=== PATIENT | female | born 1955 | race Two or more races ===

== ENCOUNTER 2020-01-20 09:57 | Outpatient (REF) | payer MEDICARE, MEDICAID, SELFPAY ==
[2020-01-20 11:06] LABS: MANUAL DIFF FLAG NO
[2020-01-20 11:10] LABS: Basophils Percent Auto 0.3 % (0-2); Eosinophils Absolute Auto 0.1 X10*3/uL (0.0-0.4); Eosinophils Percent Auto 1.2 % (0-4); Hematocrit 37.6 % (37-47); Hemoglobin 11.5 g/dl (12.0-16.0); Imm Gran Abs Auto 0.02 X10*3/uL (0.00-0.03); Imm Gran Pct Auto 0.3 % (0.0-0.4); Lymphocytes Absolute Auto 2.6 X10*3/uL (1.2-4.9); Lymphocytes Percent Auto 35.3 % (20-40); Mean Corpuscular HGB Conc 30.6 g/dl (31.0-35.0); Mean Corpuscular Hemoglobin 27.2 pg (27.0-33.0); Mean Corpuscular Volume 88.9 fL (80-98); Mean Platelet Volume 11.3 fL (9.4-12.3); Monocytes Absolute Auto 0.6 X10*3/uL (0.1-1.2); Monocytes Percent Auto 7.6 % (2-11); Neutrophils Absolute Auto 4.1 X10*3/uL (2.0-8.3); Neutrophils Percent Auto 55.3 % (45-73); Platelet Count 308 X10*3/uL (160-400); Red Blood Count 4.23 X10*6/uL (4.20-5.50); White Blood Count 7.5 X10*3/uL (4.8-10.8)
[2020-01-20 11:24] LABS: Estimated Average Glucose 140 mg/dL; Hemoglobin A1c % 6.5 %
[2020-01-20 11:55] LABS: Alanine Aminotransferase 27 U/L (0-31); Albumin Level 3.8 g/dL (3.5-5.0); Alkaline Phosphatase 85 U/L (39-117); Aspartate Amino Transferase 24 U/L (5-31); Blood Urea Nitrogen 13 mg/dL (9-16); Calcium 8.7 mg/dL (8.4-10.2); Estimated Glomerular Filt Rate > 60; Glucose Random 120 mg/dL (60-115); Total Protein 6.9 g/dL (6.5-8.0)
[2020-01-20 12:04] LABS: Anion Gap 14 (12-20); Bilirubin Total < 0.2 mg/dL (0.0-1.0); Carbon Dioxide 30 mmol/L (22-29); Chloride 101 mmol/L (96-108); Potassium 4.3 mmol/l (3.3-5.1); Sodium 141 mmol/L (135-145)
[2020-01-20 12:05] LABS: Creatinine Urine 149.71 mg/dL; Microalbum/Creatinine Ratio Ur 137.5 ug/mg cr
[2020-01-20 12:12] LABS: Thyroid Stimulating Hormone 2.95 mIU/mL (0.32-4.0)
== END 2020-01-20 09:58 | disposition home or self-care (01) ==
LOC: HO.LAB 09:57
PROVIDERS: PCP Internal Medicine; Visit Provider Internal Medicine
DX: E11.9 Type 2 diabetes mellitus without complications (principal); E78.00 Pure hypercholesterolemia, unspecified; G47.33 Obstructive sleep apnea (adult) (pediatric); M54.5 Low back pain
CPT/HCPCS: 36415; 80053; 82043; 83036; 84443; 85025

== ENCOUNTER 2020-05-08 09:42 | Outpatient (REF) | payer MEDICARE, MEDICAID, SELFPAY ==
[2020-05-08 10:39] LABS: Estimated Average Glucose 140 mg/dL; Hemoglobin A1c % 6.5 %
[2020-05-08 10:53] LABS: Alanine Aminotransferase 30 U/L (0-31); Albumin Level 3.9 g/dL (3.5-5.0); Alkaline Phosphatase 86 U/L (39-117); Anion Gap 12 (12-20); Aspartate Amino Transferase 23 U/L (5-31); Bilirubin Total 0.4 mg/dL (0.0-1.0); Blood Urea Nitrogen 19 mg/dL (9-16); Carbon Dioxide 30 mmol/L (22-29); Chloride 101 mmol/L (96-108); Cholesterol 153 mg/dL; Estimated Glomerular Filt Rate > 60; Glucose Random 151 mg/dL (60-115); HDL Cholesterol 46 mg/dL; LDL Cholesterol Calculated 88 mg/dl; Potassium 4.3 mmol/L (3.3-5.1); Sodium 139 mmol/L (135-145); Total Protein 7.1 g/dL (6.5-8.0); Triglycerides 95 mg/dL
== END 2020-05-08 09:43 | disposition home or self-care (01) ==
LOC: HO.LAB 09:42
PROVIDERS: PCP Internal Medicine; Visit Provider Internal Medicine
DX: E11.9 Type 2 diabetes mellitus without complications (principal); F32.89 Other specified depressive episodes; I10 Essential (primary) hypertension; R80.0 Isolated proteinuria
CPT/HCPCS: 36415; 80053; 80061; 83036

== ENCOUNTER 2020-06-10 10:43 | Outpatient (REF) | payer MEDICARE, MEDICAID, SELFPAY ==
--- NOTE | ~2020-06-10 | XR_ITS ---
EXAMINATION: XR CERVICAL SPINE CLINICAL INFORMATION: Radiculopathy, spondylosis COMPARISON: None TECHNIQUE: Cervical spine is imaged in 5 views: AP, odontoid, lateral, and bilateral oblique. FINDINGS: The cervical vertebral bodies are normal in height. There is no cervical vertebral compression, spondylolisthesis, disc narrowing, destructive process, or prevertebral soft tissue swelling. The odontoid appears intact. There is some minor partially bridging osteophytes anterior vertebral bodies C3-C7. Oblique view show no definite osseous narrowing of the neural foramina. There is calcification of the thyroid cartilage and mineralization left stylohyoid ligament, 4.8 cm in length. XR/XR cervical spine 5V IMPRESSION: 1. Minor anterior vertebral spurring mid and lower cervical spine. 2. No cervical vertebral compression, spondylolisthesis, disc narrowing. 3. Mineralization left stylohyoid ligament.
== END 2020-06-10 10:44 | disposition home or self-care (01) ==
LOC: HO.XRAY 10:43
PROVIDERS: PCP Internal Medicine; Visit Provider Nurse Practitioner Women's Health
DX: M54.12 Radiculopathy, cervical region (principal); M47.892 Other spondylosis, cervical region
CPT/HCPCS: 72050

== ENCOUNTER 2020-08-20 12:29 | Outpatient (REF) | payer MEDICARE, MEDICAID, SELFPAY ==
[2020-08-20 13:10] LABS: MANUAL DIFF FLAG NO
[2020-08-20 13:15] LABS: Basophils Percent Auto 0.3 % (0-2); Eosinophils Absolute Auto 0.1 X10*3/uL (0.0-0.4); Eosinophils Percent Auto 1.1 % (0-4); Hemoglobin 11.2 g/dl (12.0-16.0); Imm Gran Abs Auto 0.02 X10*3/uL (0.00-0.03); Imm Gran Pct Auto 0.3 % (0.0-0.4); Lymphocytes Absolute Auto 2.4 X10*3/uL (1.2-4.9); Mean Corpuscular HGB Conc 30.3 g/dl (31.0-35.0); Mean Corpuscular Hemoglobin 26.2 pg (27.0-33.0); Mean Corpuscular Volume 86.4 fL (80-98); Monocytes Absolute Auto 0.6 X10*3/uL (0.1-1.2); Monocytes Percent Auto 7.4 % (2-11); Neutrophils Absolute Auto 4.4 X10*3/uL (2.0-8.3); Neutrophils Percent Auto 58.9 % (45-73); Platelet Count 331 X10*3/uL (160-400); Red Blood Count 4.28 X10*6/uL (4.20-5.50); Red Cell Distribution Width 15.3 % (11.0-16.0); White Blood Count 7.5 X10*3/uL (4.8-10.8)
[2020-08-20 13:28] LABS: Estimated Average Glucose 146 mg/dL; Hemoglobin A1c % 6.7 %
[2020-08-20 13:33] LABS: Alanine Aminotransferase 35 U/L (0-31); Alkaline Phosphatase 87 U/L (39-117); Anion Gap 12 (12-20); Aspartate Amino Transferase 35 U/L (5-31); Bilirubin Total 0.6 mg/dL (0.0-1.0); Blood Urea Nitrogen 15 mg/dL (9-16); Calcium 9.2 mg/dL (8.4-10.2); Carbon Dioxide 30 mmol/L (22-29); Chloride 101 mmol/L (96-108); Cholesterol 164 mg/dL; Estimated Glomerular Filt Rate > 60; Glucose Random 130 mg/dL (60-115); HDL Cholesterol 48 mg/dL; LDL Cholesterol Calculated 105 mg/dl; Potassium 4.4 mmol/L (3.3-5.1); Sodium 139 mmol/L (135-145); Total Protein 6.6 g/dL (6.5-8.0); Triglycerides 58 mg/dL
== END 2020-08-20 12:30 | disposition home or self-care (01) ==
LOC: HO.LAB 12:29
PROVIDERS: PCP Internal Medicine; Visit Provider Internal Medicine
DX: E11.9 Type 2 diabetes mellitus without complications (principal); E78.00 Pure hypercholesterolemia, unspecified; F33.41 Major depressive disorder, recurrent, in partial remission; I10 Essential (primary) hypertension; R80.0 Isolated proteinuria
CPT/HCPCS: 36415; 80053; 80061; 83036; 85025

== ENCOUNTER 2020-12-04 08:39 | Outpatient (REF) | payer MEDICARE, MEDICAID, SELFPAY ==
[2020-12-04 09:08] LABS: MANUAL DIFF FLAG NO
[2020-12-04 09:19] LABS: Basophils Percent Auto 0.3 % (0-2); Eosinophils Absolute Auto 0.1 X10*3/uL (0.0-0.4); Eosinophils Percent Auto 1.3 % (0-4); Hematocrit 36.6 % (37-47); Hemoglobin 10.9 g/dl (12.0-16.0); Imm Gran Abs Auto 0.01 X10*3/uL (0.00-0.03); Imm Gran Pct Auto 0.1 % (0.0-0.4); Lymphocytes Absolute Auto 2.9 X10*3/uL (1.2-4.9); Lymphocytes Percent Auto 40.9 % (20-40); Mean Corpuscular HGB Conc 29.8 g/dl (31.0-35.0); Mean Corpuscular Hemoglobin 25.8 pg (27.0-33.0); Mean Corpuscular Volume 86.5 fL (80-98); Mean Platelet Volume 11.3 fL (9.4-12.3); Monocytes Absolute Auto 0.6 X10*3/uL (0.1-1.2); Monocytes Percent Auto 7.9 % (2-11); Neutrophils Absolute Auto 3.5 X10*3/uL (2.0-8.3); Neutrophils Percent Auto 49.5 % (45-73); Platelet Count 293 X10*3/uL (160-400); Red Blood Count 4.23 X10*6/uL (4.20-5.50); Red Cell Distribution Width 15.9 % (11.0-16.0); White Blood Count 7.1 X10*3/uL (4.8-10.8)
[2020-12-04 09:53] LABS: Alanine Aminotransferase 27 U/L (0-31); Albumin Level 3.9 g/dL (3.5-5.0); Alkaline Phosphatase 85 U/L (39-117); Anion Gap 11 (12-20); Aspartate Amino Transferase 23 U/L (5-31); Bilirubin Total 0.3 mg/dL (0.0-1.0); Blood Urea Nitrogen 15 mg/dL (9-16); Calcium 9.2 mg/dL (8.4-10.2); Carbon Dioxide 31 mmol/L (22-29); Chloride 102 mmol/L (96-108); Cholesterol 149 mg/dL; Estimated Glomerular Filt Rate > 60; Glucose Random 132 mg/dL (60-115); HDL Cholesterol 42 mg/dL; LDL Cholesterol Calculated 85 mg/dl; Potassium 4.2 mmol/L (3.3-5.1); Sodium 140 mmol/L (135-145); Triglycerides 113 mg/dL
[2020-12-04 10:04] LABS: Estimated Average Glucose 134 mg/dL; Hemoglobin A1C 128.6241 umol/L; Hemoglobin A1c % 6.3 %
[2020-12-04 10:05] LABS: Vitamin B12 839 pg/mL (200-900)
[2020-12-04 10:15] LABS: Ferritin 13 ng/mL (10-250)
== END 2020-12-04 08:40 | disposition home or self-care (01) ==
LOC: HO.LAB 08:39
PROVIDERS: PCP Internal Medicine; Visit Provider Internal Medicine
DX: D50.8 Other iron deficiency anemias (principal); E11.9 Type 2 diabetes mellitus without complications; E78.00 Pure hypercholesterolemia, unspecified; H81.11 Benign paroxysmal vertigo, right ear; I10 Essential (primary) hypertension; R74.01 Elevation of levels of liver transaminase levels
CPT/HCPCS: 36415; 80053; 80061; 82607; 82728; 83036; 85025

== ENCOUNTER 2021-02-03 09:50 | Outpatient (REF) | payer MEDICARE, MEDICAID, SELFPAY ==
--- NOTE | ~2021-02-03 | XR_ITS ---
EXAMINATION: RIGHT ANKLE AND FOOT X-RAY CLINICAL INFORMATION: Pain COMPARISON: None TECHNIQUE: 3 views of the right ankle and 3 views of the right foot FINDINGS: Right foot: Bone alignment is normal. No fracture or dislocation is seen. There is mild osteoarthritis at the first MTP joint with small osteophytes. There are small osteophytes in the midfoot at the navicular cuneiform and cuneiform metatarsal joints. There are calcaneal spurs. Soft tissues are otherwise unremarkable. Right ankle: Bone alignment is normal. No fracture or dislocation is seen. The ankle mortise is normal. Soft tissues are normal. XR/XR ankle RT 2V IMPRESSION: Right foot: Mild degenerative changes and calcaneal spurs. Right ankle: Unremarkable exam.
--- NOTE | ~2021-02-03 | XR_ITS ---
EXAMINATION: RIGHT ANKLE AND FOOT X-RAY CLINICAL INFORMATION: Pain COMPARISON: None TECHNIQUE: 3 views of the right ankle and 3 views of the right foot FINDINGS: Right foot: Bone alignment is normal. No fracture or dislocation is seen. There is mild osteoarthritis at the first MTP joint with small osteophytes. There are small osteophytes in the midfoot at the navicular cuneiform and cuneiform metatarsal joints. There are calcaneal spurs. Soft tissues are otherwise unremarkable. Right ankle: Bone alignment is normal. No fracture or dislocation is seen. The ankle mortise is normal. Soft tissues are normal. XR/XR foot RT 2V IMPRESSION: Right foot: Mild degenerative changes and calcaneal spurs. Right ankle: Unremarkable exam.
== END 2021-02-03 09:51 | disposition home or self-care (01) ==
LOC: HO.XRAY 09:50
PROVIDERS: PCP Internal Medicine; Visit Provider Nurse Practitioner Women's Health
DX: M25.571 Pain in right ankle and joints of right foot (principal)
CPT/HCPCS: 73600; 73620

== ENCOUNTER 2021-07-07 08:26 | Outpatient (REF) | payer MEDICARE, MEDICAID, SELFPAY ==
[2021-07-07 08:49] LABS: MANUAL DIFF FLAG NO
[2021-07-07 09:12] LABS: Basophils Percent Auto 0.5 % (0-2); Eosinophils Absolute Auto 0.1 X10*3/uL (0.0-0.4); Eosinophils Percent Auto 1.7 % (0-4); Hematocrit 31.5 % (37.0-47.0); Hemoglobin 9.1 g/dl (12.0-16.0); Imm Gran Abs Auto 0.02 X10*3/uL (0.00-0.03); Imm Gran Pct Auto 0.2 % (0.0-0.4); Lymphocytes Absolute Auto 2.8 X10*3/uL (1.2-4.9); Lymphocytes Percent Auto 33.9 % (20-40); Mean Corpuscular HGB Conc 28.9 g/dl (31.0-35.0); Mean Corpuscular Hemoglobin 24.9 pg (27.0-33.0); Mean Corpuscular Volume 86.3 fL (80.0-98.0); Mean Platelet Volume 10.8 fL (9.4-12.3); Monocytes Absolute Auto 0.6 X10*3/uL (0.1-1.2); Monocytes Percent Auto 7.3 % (2-11); Neutrophils Absolute Auto 4.6 x10*3/uL (2.0-8.3); Neutrophils Percent Auto 56.4 % (45-73); Platelet Count 294 X10*3/uL (160-400); Red Blood Count 3.65 X10*6/uL (4.20-5.50); Red Cell Distribution Width 16.3 % (11.0-16.0); White Blood Count 8.1 X10*3/uL (4.8-10.8)
[2021-07-07 09:40] LABS: Alanine Aminotransferase 27 U/L (0-31); Albumin Level 3.7 g/dL (3.5-5.0); Alkaline Phosphatase 91 U/L (39-117); Anion Gap 10 (12-20); Aspartate Amino Transferase 17 U/L (5-31); Bilirubin Total 0.4 mg/dL (0.0-1.0); Blood Urea Nitrogen 17 mg/dL (9-16); Calcium 9.2 mg/dL (8.4-10.2); Carbon Dioxide 30 mmol/L (22-29); Chloride 106 mmol/L (96-108); Estimated Glomerular Filt Rate > 60; Glucose Random 132 mg/dL (60-115); Potassium 4.5 mmol/L (3.3-5.1); Sodium 141 mmol/L (135-145); Total Protein 6.9 g/dL (6.5-8.0)
[2021-07-07 10:02] LABS: Ferritin 13 ng/mL (10-250)
[2021-07-07 10:51] LABS: Estimated Average Glucose 137 mg/dL; Hemoglobin A1c % 6.4 %
[2021-07-07 11:01] LABS: Creatinine Urine 103.89 mg/dL
[2021-07-07 11:25] LABS: Microalbum/Creatinine Ratio Ur 903.8 ug/mg cr
== END 2021-07-07 08:27 | disposition home or self-care (01) ==
LOC: HO.LAB 08:26
PROVIDERS: PCP Internal Medicine; Visit Provider Internal Medicine
DX: D50.8 Other iron deficiency anemias (principal); E11.40 Type 2 diabetes mellitus with diabetic neuropathy, unspecified; E78.00 Pure hypercholesterolemia, unspecified
CPT/HCPCS: 36415; 80053; 82043; 82728; 83036; 85025

== ENCOUNTER 2021-07-29 11:58 | Outpatient (REF) | payer MEDICARE, MEDICAID, SELFPAY ==
--- NOTE | ~2021-07-29 | MM_ITS ---
EXAMINATION: MM SCREENING DIGITAL BREAST TOMOSYNTHESIS, BILATERAL CLINICAL INFORMATION: Screening. Asymptomatic. The lifetime risk of breast cancer based on the Tyrer-Cuzick Model is 4.2%. COMPARISON: Mammography: None TECHNIQUE: Digital breast tomosynthesis is performed in both the craniocaudal and mediolateral oblique views along with computer-aided detection (CAD). Synthesized 2D images are generated from the tomosynthesis. FINDINGS: There are scattered areas of fibroglandular density (ACR BI-RADS breast composition Category b). There are no significant masses, abnormal calcifications, or other abnormalities. MM/MM tomosynthesis screening BI IMPRESSION: There are no significant changes from prior study. ASSESSMENT: BI-RADS 1: Negative RECOMMENDATION: Routine annual mammography screening. This patient's information was entered into a reminder system with a target due date for their next mammogram.
== END 2021-07-29 11:59 | disposition home or self-care (01) ==
LOC: HO.MAMMO 11:58
PROVIDERS: Visit Provider Internal Medicine
DX: Z12.31 Encounter for screening mammogram for malignant neoplasm of breast (principal)
CPT/HCPCS: 77063; 77067

== ENCOUNTER 2021-10-06 10:38 | Outpatient (REF) | payer MEDICARE, MEDICAID, SELFPAY ==
[2021-10-06 14:15] LABS: Estimated Average Glucose 131 mg/dL; Hemoglobin A1c % 6.2 %
[2021-10-06 14:31] LABS: Alanine Aminotransferase 33 U/L (0-31); Albumin Level 4.1 g/dL (3.5-5.0); Alkaline Phosphatase 80 U/L (39-117); Aspartate Amino Transferase 32 U/L (5-31); Bilirubin Total 0.3 mg/dL (0.0-1.0); Blood Urea Nitrogen 18 mg/dL (9-16); Calcium 8.8 mg/dL (8.4-10.2); Estimated Glomerular Filt Rate > 60; Glucose Random 113 mg/dL (60-115); Total Protein 7.3 g/dL (6.5-8.0)
[2021-10-06 14:48] LABS: Anion Gap 13 (12-20); Carbon Dioxide 29 mmol/L (22-29); Chloride 101 mmol/L (96-108); Sodium 139 mmol/L (135-145)
== END 2021-10-06 10:39 | disposition home or self-care (01) ==
LOC: HO.10HDL 10:38
PROVIDERS: Visit Provider Internal Medicine
DX: E11.9 Type 2 diabetes mellitus without complications (principal); I10 Essential (primary) hypertension; N23 Unspecified renal colic; F32.2 Major depressive disorder, single episode, severe without psychotic features
CPT/HCPCS: 36415; 80053; 83036

== ENCOUNTER 2021-12-04 20:50 | Emergency (ER) | payer MEDICARE, MEDICAID, SELFPAY ==
[2021-12-04 21:30] VITALS: BP 157/75; PULSE 73; RESP 20; TEMP 36.6; O2SAT 95; BMI 46.7
[2021-12-04 21:37] LABS: MANUAL DIFF FLAG NO
[2021-12-04 21:39] LABS: Basophils Percent Auto 0.3 % (0-2); Eosinophils Absolute Auto 0.1 X10*3/uL (0.0-0.4); Eosinophils Percent Auto 0.7 % (0-4); Hematocrit 41.4 % (37.0-47.0); Hemoglobin 13.1 g/dl (12.0-16.0); Imm Gran Abs Auto 0.02 X10*3/uL (0.00-0.03); Imm Gran Pct Auto 0.2 % (0.0-0.4); Lymphocytes Absolute Auto 1.8 X10*3/uL (1.2-4.9); Lymphocytes Percent Auto 20.4 % (20-40); Mean Corpuscular HGB Conc 31.6 g/dl (31.0-35.0); Mean Corpuscular Hemoglobin 27.8 pg (27.0-33.0); Mean Corpuscular Volume 87.9 fL (80.0-98.0); Mean Platelet Volume 10.6 fL (9.4-12.3); Monocytes Absolute Auto 0.5 X10*3/uL (0.1-1.2); Monocytes Percent Auto 5.6 % (2-11); Neutrophils Absolute Auto 6.5 x10*3/uL (2.0-8.3); Neutrophils Percent Auto 72.8 % (45-73); Platelet Count 260 X10*3/uL (160-400); Red Blood Count 4.71 X10*6/uL (4.20-5.50); Red Cell Distribution Width 14.5 % (11.0-16.0); White Blood Count 8.9 X10*3/uL (4.8-10.8)
[2021-12-04 22:02] LABS: Alanine Aminotransferase 31 U/L (0-31); Alkaline Phosphatase 81 U/L (39-117); Anion Gap 14 (12-20); Aspartate Amino Transferase 28 U/L (5-31); Bilirubin Direct 0.3 mg/dL (0.0-0.5); Bilirubin Total 0.6 mg/dL (0.0-1.0); Blood Urea Nitrogen 12 mg/dL (9-16); Calcium 9.3 mg/dL (8.4-10.2); Carbon Dioxide 29 mmol/L (22-29); Chloride 100 mmol/L (96-108); Estimated Glomerular Filt Rate > 60; Glucose Random 138 mg/dL (60-115); Lipase 8 U/L (8-78); Potassium 4.2 mmol/L (3.3-5.1); Sodium 139 mmol/L (135-145); Total Protein 7.5 g/dL (6.5-8.0)
--- NOTE | 2021-12-05 00:42 | ED_ITS ---
HPI - Nausea/Vomiting/Diarrhea General Chief complaint: Nausea/Vomiting/Diarrhea Stated complaint: diabetic, cant move/ eat, vomiting, mtlpe issues Time Seen by Provider: 12/05/21 00:11 Source: patient and family Mode of arrival: ambulatory Limitations: language barrier ( patient's 1st language is Cambodian, she does speak some Senegalese, son speaks Senegalese, [place]ian iPad park interpreter was used) History of Present Illness HPI Narrative: 66-year-old female who presents emergency department for evaluation of vertigo, nausea, vomiting, abdominal pain and weakness. The patient states that she has been having difficulty with positional vertigo for approximately 3 weeks. She states that her doctor did put her on Antivert which is given her some relief. The patient states that she was in [place] for 15 days and has been back for approximately 4 days. She states since returning from [place] her vertigo i s gotten worse. She states that if she lies in bed and does not move she feels okay but if she turns her head she gets dizzy as if the room is spinning. She states that she has associated nausea and has vomited at least 5 times yesterday. She also developed abdominal pain. She points to her epigastric area when asked to localize the pain. She describes it as an intermittent burning sensation. She states she also had several episodes of loose diarrheal stool yesterday. She denied fever, chills, rhinorrhea, sore throat, cough, chest pain. She states she occasionally feels short of breath. She denied frequency but she states that yesterday she did have some dysuria but this resolved. She denies headache. She states she has diffuse weakness. Related Data Previous Rx's Medication Instructions Recorded meclizine 25 mg tablet (Dramamine 25 mg PO TID PRN dizziness #20 tabs 12/05/21 Less Drowsy) ondansetron 4 mg disintegrating 4 mg PO Q6-8H PRN nausea and 12/05/21 tablet vomiting #14 tabs Allergies Allergy/AdvReac Type Severity Reaction Status Date / Time gabapentin Allergy Unknown leg edema, Verified 12/04/21 21:34 wt gain pregabalin Allergy Unknown wt gain, Verified 12/04/21 21:34 depression, anxiety No Known Allergies Allergy Verified 11/11/21 13:15 [No Known Allergies*] Review of Systems Review of Systems: Yes all other systems are reviewed and are negative PMFSH Past Medical History [facility] Narrative: Past medical history: Diabetes mellitus, hypertension, obstructive sleep apnea, depression, anxiety, fibromyalgia, chronic back pain , kidney stones (Left staghorn calculus). The past surgical history: Cholecystectomy. Social history: She denies tobacco use but she is a former smoker and quit approximately 11 years prior. She denies alcohol use. She denies drug use. Social History Social History Advance Directives: No Advance Directives Information Provided: No Physical Exam Vital Signs: Vital Signs: Last Vital Signs Temp 98.0 F 12/05/21 00:55 Pulse 68 12/05/21 00:55 Resp 16 12/05/21 00:55 BP 138/58 L 12/05/21 00:55 Pulse Ox 95 12/05/21 00:55 O2 Del Method 12/05/21 00:55 BMI result Body Mass Index 46.7 Const: Other: awake, alert, female patient, very pleasant and cooperative, does not appear to be in distress, answers all questions appropriately, she has an elevated BMI of 46.8 Orientation/consciousness: oriented to person and oriented to place HEENT: Head: Yes normal to inspection, Yes normocephalic and Yes atraumatic Ears: external ears normal General nose exam: Normal external nose present Face and sinus: Yes normal facial exam Mouth: Normal oral and palatal mucosa present Throat: Yes posterior oropharynx normal Eyes: General: appearance normal, both eyes and all related structures Pupils: Equal, round and reactive pupils present Neck: Neck: Yes normal visual inspection, Yes no lymphadenopathy, Yes trachea midline and Yes supple Chest: Chest palpation & inspection: normal inspection of the chest and normal palpation of entire chest wall Resp: Effort & Inspection: normal respiratory effort and able to speak in complete sentences Auscultation: clear to auscultation bilaterally Cardio: Rate: regular rate Rhythm: regular rhythm Heart sounds: S1 normal heart sound present, S2 normal heart sound present and no murmurs GI: Inspection: Yes normal to inspection Palpation (GI): Soft to palpation, Tenderness to palpation present (GI) in the epigastrum ( moderate) and no guarding Auscultation: normal bowel sounds : General: Yes no CVA tenderness Back/Spine/Pelvis: Back: no CVA tenderness Skin: General skin exam: no rashes or lesions noted Neuro: General: oriented to person and oriented to place Cranial nerves: Yes CN's II-XII intact bilaterally and Yes Equal, round and reactive pupils present Cognition (Neuro): normal cognition Motor exam (neuro): 5/5 motor strength present throughout Coordination: [id number] test normal and [id number] test normal Extrem: General: Yes normal to inspection Psych: Appearance: grossly normal Speech and movement: Normal speech and movement present Affect: normal affect Attitude: cooperative Thought process: Normal thought process present Thought content: Normal thought content present Course Course Course Narrative: 66-year-old female who presents emergency department for evaluation of positional vertigo, nausea, vomiting, weakness, epigastric abdominal pain. Patient states she was diagnosed with vertigo and has been having symptoms for the past 3 weeks. She states for the past 24 hours she has had significant room spinning dizziness whenever she moves her head with associated nausea and vomiting. She currently is complaining of pain in her epigastric area as well. Patient has been taking Antivert with some relief but in the last 24 hours the medication is not helped her symptoms. Patient's vital signs were unremarkable. The patient's abdominal exam did reveal epigastric tenderness, her neurologic exam was non focal. Did order laboratory evaluation includes CBC, CMP, lipase, urinalysis. . Patient was ordered to get normal saline x1 L IV, Zofran 4 mg IV and Toradol 30 mg IV. 0052 : Laboratory evaluation: CBC normal. CMP was normal except for an elevated glucose of 138. Lipase was normal. 0315: Patient is feeling better after the above treatment. The patient's presentation is consistent with positional vertigo causing nausea and vomiting. The patient was given another prescription for meclizine. She was also given prescription for Zofran. She was given printed and verbal instructions and discharged home MDM - Nausea/Vomiting/Diarrhea Lab Data Result diagrams: 12/04/21 21:33 12/04/21 21:33 Labs: Lab Results 12/04/21 12/04/21 12/05/21 Range/Units 21:33 21:33 00:47 WBC 8.9 (4.8-10.8) X10*3/uL RBC 4.71 D (4.20-5.50) X10*6/uL Hgb 13.1 D (12.0-16.0) g/dl Hct 41.4 D (37.0-47.0) % MCV 87.9 (80.0-98.0) fL MCH 27.8 (27.0-33.0) pg MCHC 31.6 (31.0-35.0) g/dl RDW 14.5 (11.0-16.0) % Plt Count 260 (160-400) X10*3/uL MPV 10.6 (9.4-12.3) fL Immature Gran % (Auto) 0.2 (0.0-0.4) % Neut % (Auto) 72.8 (45-73) % Lymph % (Auto) 20.4 (20-40) % [place] % (Auto) 5.6 (2-11) % Eos % (Auto) 0.7 (0-4) % Baso % (Auto) 0.3 (0-2) % Lymph # (Auto) 1.8 (1.2-4.9) X10*3/uL [place] # (Auto) 0.5 (0.1-1.2) X10*3/uL Eos # (Auto) 0.1 (0.0-0.4) X10*3/uL Baso # (Auto) 0.0 (0.0-0.2) X10*3/uL Abs Immat Gran (auto) 0.02 (0.00-0.03) X10*3/uL Absolute Neuts (auto) 6.5 (2.0-8.3) x10*3/uL Absolute Nucleated RBC 0.000 (0.0-0.012) X10*3/uL Nucleated RBC % (auto) 0.0 (0.0-0.2) /100WBC Sodium 139 (135-145) mmol/L Potassium 4.2 (3.3-5.1) mmol/L Chloride 100 (96-108) mmol/L Carbon Dioxide 29 (22-29) mmol/L Anion Gap 14 (12-20) BUN 12 (9-16) mg/dL Creatinine 0.76 (0.5-1.4) mg/dL Estim Creat Clear Calc 100.0 Estimated GFR > 60 Random Glucose 138 H (60-115) mg/dL Calcium 9.3 (8.4-10.2) mg/dL Total Bilirubin 0.6 (0.0-1.0) mg/dL Direct Bilirubin 0.3 (0.0-0.5) mg/dL AST 28 (5-31) U/L ALT 31 (0-31) U/L Alkaline Phosphatase 81 (39-117) U/L Total Protein 7.5 (6.5-8.0) g/dL Albumin 4.0 (3.5-5.0) g/dL Lipase 8 (8-78) U/L Urine Color Yellow Urine Appearance Clear Urine pH 7.5 (5.0-9.0) Ur Specific [place] 1.015 (1.005-1.025) Urine Protein Negative (Neg-Trace) mg/dL Urine Glucose (UA) Negative (Negative) mg/dL Urine Ketones Negative (Negative) mg/dL Urine Blood Negative (Negative) Urine Nitrite Negative (Negative) Ur Leukocyte Esterase Small (1+) H (Negative) Urine RBC 0-2 (0-2) /HPF Urine WBC 6-10 H (0-5) /HPF Ur Squamous Epith Cells 3-5 (0-2) /HPF Urine Bacteria 1+ (None Seen) Hyaline Casts 0-2 (0-2) /LPF Discharge Plan Discharge Clinical Impression: Acute dehydration Benign paroxysmal positional vertigo Qualifiers: Laterality: unspecified laterality Qualified Code(s): H81.10 - Benign paroxysmal vertigo, unspecified ear Vomiting Qualifiers: Nausea presence: with nausea Patient Disposition: Home, Self-Care Instructions: Benign Paroxysmal Positional Vertigo (ED) Additional Instructions: Your blood work was unremarkable. Your symptoms are consistent with positional vertigo. Take meclizine 25 mg pills, 1 pill 3 times a day for the next 3 days for dizziness then as needed for dizziness. This medication will make you sleepy. Do not drive or work while taking this medication. Take Zofran ODT 4 mg pills, 1 pill dissolved in your mouth every 8 hours as need ed for nausea and vomiting. Follow-up with your doctor in 2 days. Please return to the emergency department if your symptoms get worse or if you develop any symptoms that are concerning to you. Prescriptions: New ondansetron 4 mg tablet,disintegrating 4 mg PO Q6-8H PRN (Reason: nausea and vomiting) Qty: 14 0RF meclizine [Dramamine Less Drowsy] 25 mg tablet 25 mg PO TID PRN (Reason: dizziness) Qty: 20 0RF
[2021-12-05] MEDS: 0.9 % Sodium Chloride 1,000 ML 999 ML IV (00:51)
[2021-12-05] MEDS: ondansetron HCL 4 MG/2 ML VIAL IVPUSH (00:51)
[2021-12-05] MEDS: Ketorolac Tromethamine 15 MG/ML VIAL 30 MG IVPUSH (00:51)
[2021-12-05 00:53] LABS: Appearance Urine Clear; Color Urine Yellow; Glucose Urine UA Negative (Negative); Leukocyte Esterase Urine Small (1+) (Negative); Nitrite Urine Negative (Negative); PH 7.5 (5.0-9.0); Specific Gravity - Urine 1.015 (1.005-1.025); Urine Blood Negative (Negative); Urine Ketones Negative (Negative); Urine Protein Negative (Neg-Trace)
[2021-12-05 00:55] VITALS: BP 138/58; PULSE 68; RESP 16; TEMP 36.7; O2SAT 95
[2021-12-05 00:55] LABS: Bacteria Urine 1+ (None Seen); Hyaline Casts Urine 0-2 /LPF (0-2); RBC Urine 0-2 /HPF (0-2); UACC Culture Trigger YES
[2021-12-05 03:21] VITALS: BP 126/58; PULSE 64; RESP 16; TEMP 36.6; O2SAT 97
[2021-12-06 06:54] LABS: Glucose, Whole Blood 129 mg/dL (60-115)
== END 2021-12-05 03:50 | disposition home or self-care (01) ==
PROVIDERS: Student in an Organized Health Care Education/Training Program; Emergency Provider Emergency Medicine Emergency Medical Services
DX: E86.0 Dehydration (principal); H81.10 Benign paroxysmal vertigo, unspecified ear; R11.2 Nausea with vomiting, unspecified; E66.9 Obesity, unspecified; Z68.42 Body mass index [BMI] 45.0-49.9, adult; Z79.899 Other long term (current) drug therapy
CPT/HCPCS: 36415; 80048; 80076; 81001; 82947; 83690; 85025; 87086; 96374; 96375; 99284; J1885; J2405

== ENCOUNTER 2022-04-18 10:33 | Outpatient (REF) | payer MEDICARE, MEDICAID, SELFPAY ==
[2022-04-18 10:46] LABS: MANUAL DIFF FLAG NO
[2022-04-18 11:00] LABS: Basophils Percent Auto 0.2 % (0-2); Eosinophils Absolute Auto 0.1 X10*3/uL (0.0-0.4); Hematocrit 42.7 % (37.0-47.0); Hemoglobin 13.4 g/dl (12.0-16.0); Imm Gran Abs Auto 0.02 X10*3/uL (0.00-0.03); Imm Gran Pct Auto 0.2 % (0.0-0.4); Lymphocytes Percent Auto 36.8 % (20-40); Mean Corpuscular HGB Conc 31.4 g/dl (31.0-35.0); Mean Corpuscular Hemoglobin 28.9 pg (27.0-33.0); Mean Corpuscular Volume 92.2 fL (80.0-98.0); Mean Platelet Volume 10.8 fL (9.4-12.3); Monocytes Absolute Auto 0.6 X10*3/uL (0.1-1.2); Monocytes Percent Auto 7.1 % (2-11); Neutrophils Absolute Auto 4.5 x10*3/uL (2.0-8.3); Neutrophils Percent Auto 54.7 % (45-73); Platelet Count 278 X10*3/uL (160-400); Red Blood Count 4.63 X10*6/uL (4.20-5.50); Red Cell Distribution Width 13.7 % (11.0-16.0); White Blood Count 8.2 X10*3/uL (4.8-10.8)
[2022-04-18 11:07] LABS: Estimated Average Glucose 140 mg/dL; Hemoglobin A1c % 6.5 %
[2022-04-18 11:53] LABS: Alanine Aminotransferase 52 U/L (0-31); Albumin Level 3.9 g/dL (3.5-5.0); Alkaline Phosphatase 95 U/L (39-117); Anion Gap 13 (12-20); Aspartate Amino Transferase 40 U/L (5-31); Bilirubin Total 0.4 mg/dL (0.0-1.0); Blood Urea Nitrogen 18 mg/dL (9-16); Calcium 9.1 mg/dL (8.4-10.2); Carbon Dioxide 31 mmol/L (22-29); Chloride 101 mmol/L (96-108); Cholesterol 168 mg/dL; Estimated Glomerular Filt Rate > 60; Glucose Random 132 mg/dL (60-115); HDL Cholesterol 44 mg/dL; LDL Cholesterol Calculated 104 mg/dl; Potassium 4.1 mmol/L (3.3-5.1); Sodium 141 mmol/L (135-145); Triglycerides 104 mg/dL
[2022-04-18 12:47] LABS: Creatinine Urine 168.81 mg/dL; Microalbum/Creatinine Ratio Ur 100.1 ug/mg cr
== END 2022-04-18 10:34 | disposition home or self-care (01) ==
LOC: HO.LAB 10:33
PROVIDERS: PCP Internal Medicine; Visit Provider Internal Medicine
DX: E11.9 Type 2 diabetes mellitus without complications (principal); I10 Essential (primary) hypertension; N20.0 Calculus of kidney; S05.92XS Unspecified injury of left eye and orbit, sequela
CPT/HCPCS: 36415; 80053; 80061; 82043; 83036; 85025

== ENCOUNTER → 2022-05-13 09:06 | Outpatient (BNVA) | payer MEDICARE, MEDICAID, SELFPAY | PROVIDERS: PCP Internal Medicine; Visit Provider Urology | DX: N20.0 Calculus of kidney (principal); R31.0 Gross hematuria | CPT/HCPCS: 99202 ==

== ENCOUNTER 2022-05-26 15:27 | Outpatient (REF) | payer MEDICARE, MEDICAID, SELFPAY ==
--- NOTE | ~2022-05-26 | CT_ITS ---
EXAMINATION: CT ABDOMEN AND PELVIS WITHOUT CONTRAST CLINICAL INFORMATION: Kidney stone COMPARISON: Previous CT of the abdomen and pelvis October 2021 TECHNIQUE: Multidetector volumetric imaging was performed from the superior aspect of the liver through the pubic symphysis. Sagittal and coronal reformatted images were obtained on the technologist's workstation. This CT examination was performed using dose optimization techniques as appropriate, variously including the following: *Automated exposure control *Adjustment of mA and/or kV according to patient size (this includes techniques or standardized protocols for targeted exams where dose is matched to indication/reason for exam; i.e. extremities or head) *Use of iterative reconstruction technique DLP: 1020 mGy-cm FINDINGS: LUNG BASES: The visualized lung bases are unremarkable. LIVER, GALLBLADDER, AND BILIARY TREE: The liver is enlarged. The contour of the liver is slightly irregular questionable for mild cirrhotic change. No focal liver lesion or biliary duct dilatation.. No focal hepatic lesion or biliary ductal dilatation is present. The gallbladder has been removed. PANCREAS: Unremarkable. SPLEEN: Unremarkable. ADRENAL GLANDS: Unremarkable. KIDNEYS AND URETERS: 7 x 17 mm stone in the left renal pelvis. Hounsfield units measure 260. This appears decreased in size and density compared to October 2021 exam. Measurement from the mid axillary line not available due to patient body habitus. This is at least 14 cm from the mid axillary line. Mild left hydronephrosis. No left ureteral dilatation or ureteral stone. There is a 1 cm low-attenuation lesion in the medial lower pole of the right kidney. Compared with prior exam, this probably represents a cyst. BLADDER: Not optimally distended. GASTROINTESTINAL TRACT: The small and large bowel are unremarkable. The appendix is unremarkable. ABDOMINAL WALL: Small umbilical hernia containing fat. LYMPH NODES: Normal. VASCULAR: Unremarkable. PELVIC VISCERA: Unremarkable. OSSEOUS STRUCTURES: Degenerative changes of the spine and hip joints. CT/CT abdomen pelvis wo IV con IMPRESSION: 7 x 17 mm left renal pelvis stone. Mild left hydronephrosis. Fleischner guidelines were followed.
== END 2022-05-26 15:28 | disposition home or self-care (01) ==
LOC: HO.CT 15:27
PROVIDERS: PCP Internal Medicine; Visit Provider Urology
DX: N20.0 Calculus of kidney (principal)
CPT/HCPCS: 74176

== ENCOUNTER → 2022-05-30 15:26 | Outpatient (BNVA) | payer MEDICARE, MEDICAID, SELFPAY | PROVIDERS: PCP Internal Medicine; Visit Provider Urology | DX: N20.0 Calculus of kidney (principal) | CPT/HCPCS: 99212 ==

== ENCOUNTER 2022-07-15 10:49 | Outpatient (REF) | payer MEDICARE, MEDICAID, SELFPAY ==
[2022-07-15 14:06] LABS: Estimated Average Glucose 148 mg/dL; Hemoglobin A1c % 6.8 %
[2022-07-15 14:08] LABS: Alanine Aminotransferase 55 U/L (0-31); Albumin Level 3.8 g/dL (3.5-5.0); Alkaline Phosphatase 83 U/L (39-117); Anion Gap 10 (12-20); Aspartate Amino Transferase 45 U/L (5-31); Bilirubin Total 0.6 mg/dL (0.0-1.0); Blood Urea Nitrogen 16 mg/dL (9-16); Calcium 8.8 mg/dL (8.4-10.2); Carbon Dioxide 32 mmol/L (22-29); Chloride 103 mmol/L (96-108); Estimated Glomerular Filt Rate > 60; Glucose Random 122 mg/dL (60-115); Magnesium 1.8 mg/dL (1.6-2.6); Potassium 4.2 mmol/L (3.3-5.1); Sodium 141 mmol/L (135-145); Total Protein 6.8 g/dL (6.5-8.0)
== END 2022-07-15 10:50 | disposition home or self-care (01) ==
LOC: HO.10HDL 10:49
PROVIDERS: Visit Provider Internal Medicine
DX: E11.9 Type 2 diabetes mellitus without complications (principal); I10 Essential (primary) hypertension; R80.8 Other proteinuria
CPT/HCPCS: 36415; 80053; 83036; 83735

== ENCOUNTER 2022-10-31 09:28 | Outpatient (REF) | payer MEDICARE, MEDICAID, SELFPAY ==
[2022-10-31 10:35] LABS: MANUAL DIFF FLAG NO
[2022-10-31 10:43] LABS: Basophils Percent Auto 0.4 % (0-2); Eosinophils Absolute Auto 0.1 X10*3/uL (0.0-0.4); Eosinophils Percent Auto 1.4 % (0-4); Hematocrit 41.8 % (37.0-47.0); Imm Gran Abs Auto 0.02 X10*3/uL (0.00-0.03); Imm Gran Pct Auto 0.3 % (0.0-0.4); Lymphocytes Percent Auto 37.8 % (20-40); Mean Corpuscular HGB Conc 31.1 g/dl (31.0-35.0); Mean Corpuscular Hemoglobin 28.8 pg (27.0-33.0); Mean Corpuscular Volume 92.5 fL (80.0-98.0); Mean Platelet Volume 11.3 fL (9.4-12.3); Monocytes Absolute Auto 0.5 X10*3/uL (0.1-1.2); Monocytes Percent Auto 6.9 % (2-11); Neutrophils Absolute Auto 4.2 x10*3/uL (2.0-8.3); Neutrophils Percent Auto 53.2 % (45-73); Platelet Count 279 X10*3/uL (160-400); Red Blood Count 4.52 X10*6/uL (4.20-5.50); Red Cell Distribution Width 14.1 % (11.0-16.0); White Blood Count 7.9 X10*3/uL (4.8-10.8)
[2022-10-31 11:07] LABS: Estimated Average Glucose 131 mg/dL; Hemoglobin A1c % 6.2 %
[2022-10-31 11:17] LABS: Alanine Aminotransferase 42 U/L (0-31); Albumin Level 3.7 g/dL (3.5-5.0); Alkaline Phosphatase 88 U/L (39-117); Anion Gap 18 (12-20); Aspartate Amino Transferase 32 U/L (5-31); Bilirubin Total 0.4 mg/dL (0.0-1.0); Blood Urea Nitrogen 16 mg/dL (9-16); Carbon Dioxide 25 mmol/L (22-29); Chloride 102 mmol/L (96-108); Cholesterol 161 mg/dL; Estimated Glomerular Filt Rate > 60; Glucose Random 158 mg/dL (60-115); HDL Cholesterol 45 mg/dL; LDL Cholesterol Calculated 96 mg/dl; Sodium 141 mmol/L (135-145); Total Protein 7.3 g/dL (6.5-8.0); Triglycerides 101 mg/dL
== END 2022-10-31 09:29 | disposition home or self-care (01) ==
LOC: HO.10HDL 09:28
PROVIDERS: Visit Provider Internal Medicine
DX: E11.9 Type 2 diabetes mellitus without complications (principal); E78.00 Pure hypercholesterolemia, unspecified; G47.33 Obstructive sleep apnea (adult) (pediatric); I10 Essential (primary) hypertension; R80.8 Other proteinuria
CPT/HCPCS: 36415; 80053; 80061; 83036; 85025

== ENCOUNTER → 2022-11-24 12:10 | Outpatient (BNVA) | payer MEDICARE, MEDICAID, SELFPAY | PROVIDERS: PCP Internal Medicine; Visit Provider Physician Assistant ==

== ENCOUNTER 2022-12-13 12:40 | Outpatient (REF) | payer MEDICARE, MEDICAID, SELFPAY ==
--- NOTE | ~2022-12-13 | MM_ITS ---
EXAMINATION: MM SCREENING DIGITAL BREAST TOMOSYNTHESIS, BILATERAL CLINICAL INFORMATION: Screening. Asymptomatic. COMPARISON: Mammography: This study is compared with prior exams dating back to 2015. TECHNIQUE: Digital breast tomosynthesis is performed in both the craniocaudal and mediolateral oblique views along with computer-aided detection (CAD). Synthesized 2D images are generated from the tomosynthesis. FINDINGS: The breasts are almost entirely fatty (ACR BI-RADS breast composition Category a). There are no significant masses, abnormal calcifications, or other abnormalities. MM/MM tomosynthesis screening BI IMPRESSION: No mammographic evidence of malignancy. ASSESSMENT: BI-RADS BI-RADS 1 - Negative RECOMMENDATION: Routine annual mammography screening. 1 year F/U This examination should not preclude the clinical evaluation of a suspicious palpable abnormality. This patient's information was entered into a reminder system with a target due date for their next mammogram.
== END 2022-12-13 12:41 | disposition home or self-care (01) ==
LOC: HO.MAMMO 12:40
PROVIDERS: PCP Internal Medicine; Visit Provider Internal Medicine
DX: Z12.31 Encounter for screening mammogram for malignant neoplasm of breast (principal)
CPT/HCPCS: 77063; 77067

== ENCOUNTER → 2022-12-13 12:45 | Outpatient (BNV) | payer MEDICARE, MEDICAID, SELFPAY | PROVIDERS: PCP Internal Medicine; Visit Provider Radiology Diagnostic Radiology | DX: Z12.31 Encounter for screening mammogram for malignant neoplasm of breast (principal) | CPT/HCPCS: 77063; 77067 ==

== ENCOUNTER 2023-01-27 09:51 | Outpatient (REF) | payer MEDICARE, MEDICAID, SELFPAY ==
[2023-01-27 10:51] LABS: MANUAL DIFF FLAG NO
[2023-01-27 10:58] LABS: Basophils Percent Auto 0.4 % (0-2); Eosinophils Absolute Auto 0.1 X10*3/uL (0.0-0.4); Eosinophils Percent Auto 0.8 % (0-4); Hematocrit 40.3 % (37.0-47.0); Hemoglobin 12.7 g/dl (12.0-16.0); Imm Gran Abs Auto 0.04 X10*3/uL (0.00-0.03); Imm Gran Pct Auto 0.4 % (0.0-0.4); Lymphocytes Absolute Auto 2.8 X10*3/uL (1.2-4.9); Lymphocytes Percent Auto 26.2 % (20-40); Mean Corpuscular HGB Conc 31.5 g/dl (31.0-35.0); Mean Corpuscular Hemoglobin 28.3 pg (27.0-33.0); Mean Platelet Volume 11.3 fL (9.4-12.3); Monocytes Absolute Auto 0.9 X10*3/uL (0.1-1.2); Monocytes Percent Auto 8.5 % (2-11); Neutrophils Absolute Auto 6.9 x10*3/uL (2.0-8.3); Neutrophils Percent Auto 63.7 % (45-73); Platelet Count 279 X10*3/uL (160-400); Red Blood Count 4.48 X10*6/uL (4.20-5.50); Red Cell Distribution Width 14.1 % (11.0-16.0); White Blood Count 10.8 X10*3/uL (4.8-10.8)
[2023-01-27 11:12] LABS: Estimated Average Glucose 146 mg/dL; Hemoglobin A1c % 6.7 % (<6.0)
[2023-01-27 11:34] LABS: Alanine Aminotransferase 34 U/L (0-31); Albumin Level 3.8 g/dL (3.5-5.0); Alkaline Phosphatase 110 U/L (39-117); Anion Gap 15 (12-20); Aspartate Amino Transferase 28 U/L (5-31); Bilirubin Total 0.3 mg/dL (0.0-1.0); Blood Urea Nitrogen 14 mg/dL (9-16); Calcium 9.2 mg/dL (8.4-10.2); Carbon Dioxide 25 mmol/L (22-29); Chloride 103 mmol/L (96-108); Estimated Glomerular Filt Rate > 60; Glucose Random 141 mg/dL (60-115); Potassium 3.6 mmol/L (3.3-5.1); Sodium 139 mmol/L (135-145); Total Protein 7.6 g/dL (6.5-8.0)
== END 2023-01-27 09:52 | disposition home or self-care (01) ==
LOC: HO.10HDL 09:51
PROVIDERS: Visit Provider Internal Medicine
DX: D64.89 Other specified anemias (principal); E11.9 Type 2 diabetes mellitus without complications; E78.00 Pure hypercholesterolemia, unspecified; I10 Essential (primary) hypertension; R80.8 Other proteinuria
CPT/HCPCS: 36415; 80053; 83036; 85025

== ENCOUNTER 2023-05-10 08:35 | Day surgery (SDC) | payer MEDICARE, MEDICAID, SELFPAY ==
--- NOTE | 2023-05-09 11:50 | HO.ANESPROP2 ---
Documented by User: Ida Du NP 05/09/23 11:50 HPI - Anesthesia Eval Consult details Narrative: 67yo F for Colonoscopy Anesthesia Pre-Procedure Meds Is the patient on any of the following meds?: Dulaglutide (Trulicity) PMFSH Active Problems Active Problems: All Active Problems (Updated 11/29/22 @ 12:18 by [place] Moreno PA-C) GERD (gastroesophageal reflux disease) (Acute) History of colon polyps (Acute) Staghorn calculus (Acute) Gross hematuria (Acute) Past Medical History Medical History (Updated 11/29/22 @ 12:18 by [place] Moreno PA-C) Morbid obesity Carpal tunnel syndrome High cholesterol Diabetes mellitus Depression Osteoarthritis, knee Fibromyalgia muscle pain Arthritis Gastritis GERD (gastroesophageal reflux disease) Elevated liver enzymes Sleep apnea Asthma Hypertension Surgical History Surgical History Hx laparoscopic cholecystectomy Social History Social History (Updated 11/24/22 @ 12:39 by [place] Moreno PA-C) Household Members Other:: lives with son Alcohol intake: never Patient Tobacco Use Status: Former Tobacco user Current occupational status: unemployed and disabled Meds Allergies Allergy/AdvReac Type Severity Reaction Status Date / Time gabapentin Allergy Intermediate leg edema, Verified 11/24/22 12:34 wt gain metformin Allergy Intermediate Abdominal Verified 11/24/22 12:34 Pain pregabalin Allergy Intermediate wt gain, Verified 11/24/22 12:34 depression, anxiety Home Medications Medication Instructions Recorded Confirmed Last Taken Type albuterol sulfate 2.5 mg/3 mL 2.5 mg inhalation BID PRN 05/12/22 05/08/23 Unknown History (0.083 %) solution for nebulization Shortness Of Breath albuterol sulfate 90 mcg/actuation 1 inh inhalation Q4H PRN Shortness 05/12/22 05/08/23 Unknown History aerosol inhaler Of Breath atorvastatin 40 mg tablet 40 mg PO DAILY 05/12/22 05/08/23 Unknown History cyanocobalamin (vitamin B-12) 1,000 mcg PO DAILY 05/12/22 05/08/23 Unknown History 1,000 mcg tablet (Vitamin B-12) lisinopril 20 1 tab PO DAILY 05/12/22 05/08/23 Unknown History mg-hydrochlorothiazide 25 mg tablet lorazepam 0.5 mg tablet 0.5 mg PO BEDTIME 05/12/22 05/08/23 05/10/23 History meclizine 12.5 mg tablet 12.5 mg PO TID 05/12/22 05/08/23 Unknown History omeprazole 40 mg capsule,delayed 40 mg PO DAILY 05/12/22 05/08/23 Unknown History release oxycodone-acetaminophen 10 mg-325 1 tab PO QID PRN moderate pain 05/12/22 05/08/23 Unknown History mg tablet sertraline 50 mg tablet 50 mg PO DAILY 05/12/22 05/08/23 Unknown History Exam Height,Weight and Vital Signs: Height 5 ft 7 in Assessment and Plan Assessment Anesthesia Assessment: Chart Reviewed Documented by User: Kp Haddad MD 05/11/23 07:22 HPI - Anesthesia Eval Anesthesia Pre-Procedure Meds If Yes to any meds - educate patient: Pt education - increased risk of aspiration PMFSH Past Medical History Medical History (Updated 11/29/22 @ 12:18 by [place] Moreno PA-C) Morbid obesity Carpal tunnel syndrome High cholesterol Diabetes mellitus Depression Osteoarthritis, knee Fibromyalgia muscle pain Arthritis Gastritis GERD (gastroesophageal reflux disease) Elevated liver enzymes Sleep apnea Asthma Hypertension Family History Family history of problems with anesthesia: No Surgical History Surgical History Hx laparoscopic cholecystectomy History of Problems with Anesthesia: No Social History Social History (Updated 11/24/22 @ 12:39 by [place] Moreno PA-C) Household Members Other:: lives with son Alcohol intake: never Patient Tobacco Use Status: Former Tobacco user Current occupational status: unemployed and disabled Meds Allergies Allergy/AdvReac Type Severity Reaction Status Date / Time gabapentin Allergy Intermediate leg edema, Verified 11/24/22 12:34 wt gain metformin Allergy Intermediate Abdominal Verified 11/24/22 12:34 Pain pregabalin Allergy Intermediate wt gain, Verified 08/24/23 12:34 depression, anxiety Home Medications Medication Instructions Recorded Confirmed Last Taken Type albuterol sulfate 2.5 mg/3 mL 2.5 mg inhalation BID PRN 05/12/22 05/08/23 Unknown History (0.083 %) solution for nebulization Shortness Of Breath albuterol sulfate 90 mcg/actuation 1 inh inhalation Q4H PRN Shortness 05/12/22 05/08/23 Unknown History aerosol inhaler Of Breath atorvastatin 40 mg tablet 40 mg PO DAILY 05/12/22 05/08/23 Unknown History cyanocobalamin (vitamin B-12) 1,000 mcg PO DAILY 05/12/22 05/08/23 Unknown History 1,000 mcg tablet (Vitamin B-12) lisinopril 20 1 tab PO DAILY 05/12/22 05/08/23 Unknown History mg-hydrochlorothiazide 25 mg tablet lorazepam 0.5 mg tablet 0.5 mg PO BEDTIME 05/12/22 05/08/23 05/10/23 History meclizine 12.5 mg tablet 12.5 mg PO TID 05/12/22 05/08/23 Unknown History omeprazole 40 mg capsule,delayed 40 mg PO DAILY 05/12/22 05/08/23 Unknown History release oxycodone-acetaminophen 10 mg-325 1 tab PO QID PRN moderate pain 05/12/22 05/08/23 Unknown History mg tablet sertraline 50 mg tablet 50 mg PO DAILY 05/12/22 05/08/23 Unknown History Exam Airway Mallampati Class: III TM Dist: >3cm Neck ROM: Full Assessment and Plan Assessment Anesthesia Assessment: Anesthesia Plan Discussed Final Anesthetic Review Family History of Problems with Anesthesia: No History of Problems with Anesthesia: No NPO: Yes ASA Class: III Final Preanesthetic Review: No Changes in Pt Med Stat, Meds/Allgs Chart Reviewed, Consent Obtained/Reviewed and Anes Risks/Benef Reviewed Patient Risk: Intermediate Procedure Risk: Low Anesthetic Plan Anesthetic Plan: TIVA Disposition: Standard PACU
[2023-05-10 09:04] VITALS: BP 144/83; PULSE 83; RESP 18; TEMP 36.1; O2SAT 98; BMI 446.5
[2023-05-10 09:19] LABS: Glucose, Whole Blood 152 mg/dL (60-115)
[2023-05-10 09:25] VITALS: BMI 44.7
[2023-05-10] MEDS: Lactated Ringers 1,000 ML 100 ML IVCONT (09:43)
--- NOTE | 2023-05-10 10:03 | MHC.SHP ---
Pre-Procedural Eval Section A - 24 Hr Update-Section A only Date of Service: 05/10/23 Section B - Complete if H&P > 30 days Chief Complaint: Encounter for screening for malignant neoplasm of Relevant Family History (Specify if Yes): No Relevant Social History: None Present Medications: see Short Stay Collaborative assessment Medical History: Significant History (Morbid obesity Carpal tunnel syndrome High cholesterol Diabetes mellitus Depression Osteoarthritis, knee Fibromyalgia muscle pain Arthritis Gastritis GERD (gastroesophageal reflux disease) Elevated liver enzymes Sleep apnea Asthma Hypertension) History of Previous Operations: Relevant previous surgery/procedure and date(s) (Hx laparoscopic cholecystectomy) Allergies: Allergies Allergy/AdvReac Type Severity Reaction Status Date / Time gabapentin Allergy Intermediate leg edema, Verified 11/24/22 12:34 wt gain metformin Allergy Intermediate Abdominal Verified 11/24/22 12:34 Pain pregabalin Allergy Intermediate wt gain, Verified 11/24/22 12:34 depression, anxiety Review of Systems Sugical H&P ROS: Negative: Constitution, Cardiovascular, Respiratory, Neurological, Psychiatric, Hem-Onc, Allergic/Immunologic, Gastrointestinal, Genitourinary, Musculoskeletal, Integumentary, Endocrine and Eyes/Ears/Nose/Throat Exam Surgical H&P Exam: Normal: HEENT, Normal: Heart, Normal: Lungs, Normal: Extremities, Normal: Abdomen, Normal: Skin and Normal: Neurological Plan Diagnosis/Plan: Unchanged I have reviewed the history and physical and performed a pertinent physical examination on my patient. No changes have occurred unless specified. Time Spent With Patient Time: Total time managing care of this patient today ____ minutes.
--- NOTE | 2023-05-10 10:04 | P.OP_ITS ---
Operative Note Operative Note Date of Service: 05/10/23 Narrative: Operative Information Procedure Description: Colonoscopy Indication: hx of colon polyps Anesthesia: MAC COLONOSCOPY Instrument: Olympus variable stiffness ADULT scope 190L Colonoscopy Monitoring: Vital signs and clinical assessment, continuous EKG monitoring, Pulse oximetry, Carbon Dioxide monitoring and blood pressure monitoring were done throughout the procedure. Colon withdrawal time was 10 minutes. Procedure: The patient was placed in the left lateral decubitis position and pre-procedure medications were administered. After a digital rectal examination of the ano-rectum, the video colonoscope was inserted into the rectum and advanced through the colon to the cecum/TI. The colonoscope was slowly withdrawn in a retrograde panoramic fashion and the colon mucosa was carefully examined including a retroflexed view of the rectum. Findings and interventions are described below. Procedure Difficulty: moderate Findings: Terminal Ileum-normal Cecum:normal Ascending Colon: normal Transverse Colon -normal Descending Colon:normal Sigmoid Colon: midl diverticulosis Rectum: Retroflexion with small internal hemorrhoids, grade I Anorectum - normal Colon preparation: [place] Bowel Preparation Scale Right colon; 2 Transverse colon: 2 Left colon; 1-2 (0 = Unprepared colon segment with mucosa not seen due to solid stool that cannot be cleared. 1 = Portion of mucosa of the colon segment seen, but other areas of the colon segment not well seen due to staining, residual stool and/or opaque liquid. 2 = Minor amount of residual staining, small fragments of stool and/or opaque liquid, but mucosa of colon segment seen well. 3 = Entire mucosa of colon segment seen well with no residual staining, small fragments of stool or opaque liquid) Impression and Post Procedure Diagnosis: internal hemorrhoids diverticular disease Plan: High fiber diet leaflet Avoid straining at stool, epsom salts and sitz bath, anusol supps or cream Repeat Colonoscopy in 5 years due to fair prep left side or earlier if clinically indicated Above findings were reviewed with the patient and relevant handouts were provided if indicated.
[2023-05-10 10:48] VITALS: BP 107/51; PULSE 92; RESP 16; TEMP 36.1; O2SAT 93
[2023-05-10 11:03] VITALS: BP 134/76; PULSE 82; RESP 16; TEMP 36.9; O2SAT 96
[2023-05-10 11:16] VITALS: BP 148/75; PULSE 79; RESP 16; TEMP 36.9; O2SAT 95
== END 2023-05-10 14:30 | disposition home or self-care (01) ==
PROVIDERS: PCP Internal Medicine; Visit Provider Internal Medicine Gastroenterology
PROC: 0DJD8ZZ Inspection of Lower Intestinal Tract, Via Natural or Artificial Opening Endoscopic (ICD-10-PCS; CPT 45378; principal; 2023-05-10 11:00)
DX: Z12.11 Encounter for screening for malignant neoplasm of colon (principal); K57.30 Diverticulosis of large intestine without perforation or abscess without bleeding; K64.0 First degree hemorrhoids; Z86.010 Personal history of colon polyps; E11.9 Type 2 diabetes mellitus without complications; I10 Essential (primary) hypertension; E78.5 Hyperlipidemia, unspecified; Z79.02 Long term (current) use of antithrombotics/antiplatelets; Z79.899 Other long term (current) drug therapy
CPT/HCPCS: G0105; 82947; J2704

== ENCOUNTER → 2023-05-10 08:35 | Outpatient (BNV) | payer MEDICARE, MEDICAID, SELFPAY | PROVIDERS: PCP Internal Medicine; Visit Provider Internal Medicine Gastroenterology | DX: Z12.11 Encounter for screening for malignant neoplasm of colon (principal); Z86.010 Personal history of colon polyps; K57.30 Diverticulosis of large intestine without perforation or abscess without bleeding; K64.0 First degree hemorrhoids | CPT/HCPCS: G0105 ==

== ENCOUNTER 2023-06-29 07:13 | Outpatient (REF) | payer MEDICARE, SELFPAY ==
--- NOTE | ~2023-06-29 | CT_ITS ---
EXAMINATION: CT ABDOMEN AND PELVIS WITH CONTRAST CLINICAL INFORMATION: Left lower quadrant pain. COMPARISON: CT abdomen and pelvis dated 05/26/2019. TECHNIQUE: Multidetector volumetric images were obtained from the superior aspect of the liver through the pubic symphysis following administration 100 mL of Omnipaque 350 intravenous contrast. Sagittal and coronal reformatted images were obtained on the technologist's workstation. Oral Contrast: No. This CT examination was performed using dose optimization techniques as appropriate, variously including the following: *Automated exposure control. *Adjustment of mA and/or kV according to patient size (this includes techniques or standardized protocols for targeted exams where dose is matched to indication/reason for exam; i.e. extremities or head). *Use of iterative reconstruction technique. DLP: 799.34 mGy-cm FINDINGS: LUNG BASES: The visualized lung bases are unremarkable. LIVER, GALLBLADDER, AND BILIARY TREE: The liver is normal in size, shape, and attenuation. No focal hepatic lesion or biliary ductal dilatation is present. The gallbladder is unremarkable with no evidence of radiopaque gallstones, gallbladder wall thickening, or obvious pericholecystic inflammatory changes. PANCREAS: Unremarkable. SPLEEN: Unremarkable. ADRENAL GLANDS: Unremarkable. KIDNEYS AND URETERS: The kidneys are normal in size, shape, and attenuation. Multiple bilateral benign Bosniak class I renal cysts are noted which clearly measured water density on the prior 05/26/2022 study although they measure a bit higher on this contrast-enhanced study with some partial volume averaging. These require no additional imaging or follow-up. No suspicious solid renal masses are seen. No hydronephrosis, hydroureter, or calculi seen. No perinephric stranding. BLADDER: Fairly empty but unremarkable. GASTROINTESTINAL TRACT: The small and large bowel are unremarkable aside from colonic diverticula without diverticulitis. The appendix is unremarkable. ABDOMINAL WALL: There is a tiny periumbilical hernia seen containing only fat and an even smaller midline epigastric hernia just above this containing only fat. LYMPH NODES: No retroperitoneal lymphadenopathy. VASCULAR: Unremarkable. PELVIC VISCERA: The uterus and adnexa are unremarkable. OSSEOUS STRUCTURES: Exaggerated lumbar lordosis. Mild degenerative changes at L5-S1 with vacuum phenomena. CT/CT abdomen pelvis w IV con IMPRESSION: 1. A cause for the patient's left lower quadrant pain has not been found. 2. Incidental note made of colonic diverticulosis without diverticulitis, benign Bosniak class I renal cysts which need no further imaging or follow-up, tiny fat-containing ventral hernias and mild degenerative changes at L5-S1. Fleischner guidelines were followed.
[2023-06-29] MEDS: iohexoL 350 MG/ML 100 ML INFUS..BTL IV (10:32)
[2023-06-29] MEDS: Barium Sulfate Oral (Mocha) 450 ML ORAL.SUSP 900 ML PO (10:33)
[2023-06-30 09:50] LABS: Creatinine POC 0.6 mg/dL (0.5-1.4); GFR POC > 60
== END 2023-06-29 07:14 | disposition home or self-care (01) ==
LOC: HO.CT 07:13
PROVIDERS: PCP Internal Medicine; Visit Provider Internal Medicine
DX: R10.32 Left lower quadrant pain (principal)
CPT/HCPCS: 74177; 82565; Q9967

== ENCOUNTER 2023-07-12 08:55 | Outpatient (REF) | payer MEDICARE, SELFPAY ==
[2023-07-12 11:33] LABS: Estimated Average Glucose 148 mg/dL; Hemoglobin A1c % 6.8 % (<6.0)
[2023-07-12 12:06] LABS: Alanine Aminotransferase 27 U/L (0-31); Albumin Level 3.8 g/dL (3.5-5.0); Alkaline Phosphatase 107 U/L (39-117); Anion Gap 12 (12-20); Aspartate Amino Transferase 24 U/L (5-31); Bilirubin Total 0.3 mg/dL (0.0-1.0); Blood Urea Nitrogen 19 mg/dL (9-16); Calcium 8.7 mg/dL (8.4-10.2); Carbon Dioxide 29 mmol/L (22-29); Chloride 103 mmol/L (96-108); Estimated Glomerular Filt Rate > 60; Glucose Random 148 mg/dL (60-115); Potassium 3.8 mmol/L (3.3-5.1); Sodium 140 mmol/L (135-145); Total Protein 7.5 g/dL (6.5-8.0)
== END 2023-07-12 08:56 | disposition home or self-care (01) ==
LOC: HO.10HDL 08:55
PROVIDERS: Visit Provider Internal Medicine
DX: E11.9 Type 2 diabetes mellitus without complications (principal); J02.9 Acute pharyngitis, unspecified; J20.9 Acute bronchitis, unspecified; R50.9 Fever, unspecified
CPT/HCPCS: 36415; 80053; 83036

== ENCOUNTER 2023-10-11 11:00 | Outpatient (REF) | payer MEDICARE, MEDICAID, SELFPAY ==
[2023-10-11 13:15] LABS: MANUAL DIFF FLAG NO
[2023-10-11 13:27] LABS: Basophils Percent Auto 0.4 % (0-2); Eosinophils Absolute Auto 0.1 X10*3/uL (0.0-0.4); Eosinophils Percent Auto 1.1 % (0-4); Hematocrit 38.4 % (37.0-47.0); Hemoglobin 12.1 g/dl (12.0-16.0); Imm Gran Abs Auto 0.02 X10*3/uL (0.00-0.03); Imm Gran Pct Auto 0.3 % (0.0-0.4); Lymphocytes Absolute Auto 2.9 X10*3/uL (1.2-4.9); Lymphocytes Percent Auto 38.4 % (20-40); Mean Corpuscular HGB Conc 31.5 g/dl (31.0-35.0); Mean Corpuscular Hemoglobin 28.4 pg (27.0-33.0); Mean Corpuscular Volume 90.1 fL (80.0-98.0); Mean Platelet Volume 11.4 fL (9.4-12.3); Monocytes Absolute Auto 0.5 X10*3/uL (0.1-1.2); Monocytes Percent Auto 6.7 % (2-11); Neutrophils Percent Auto 53.1 % (45-73); Platelet Count 284 X10*3/uL (160-400); Red Blood Count 4.26 X10*6/uL (4.20-5.50); Red Cell Distribution Width 14.5 % (11.0-16.0); White Blood Count 7.6 X10*3/uL (4.8-10.8)
[2023-10-11 13:40] LABS: Estimated Average Glucose 140 mg/dL; Hemoglobin A1c % 6.5 % (<6.0)
[2023-10-11 13:41] LABS: Alanine Aminotransferase 26 U/L (0-31); Albumin Level 3.7 g/dL (3.5-5.0); Alkaline Phosphatase 103 U/L (39-117); Anion Gap 11 (12-20); Aspartate Amino Transferase 26 U/L (5-31); Bilirubin Total 0.2 mg/dL (0.0-1.0); Blood Urea Nitrogen 18 mg/dL (9-16); Calcium 8.9 mg/dL (8.4-10.2); Carbon Dioxide 28 mmol/L (22-29); Chloride 103 mmol/L (96-108); Cholesterol 157 mg/dL (<200); Estimated Glomerular Filt Rate > 60; Glucose Random 162 mg/dL (60-115); HDL Cholesterol 48 mg/dL (>40); LDL Cholesterol Calculated 91 mg/dL (<100); Potassium 3.8 mmol/L (3.3-5.1); Sodium 138 mmol/L (135-145); Total Protein 7.3 g/dL (6.5-8.0); Triglycerides 90 mg/dL (<150)
[2023-10-11 14:29] LABS: Creatinine Urine 145.21 mg/dL; Microalbum/Creatinine Ratio Ur 328.4 ug/mg cr (<30)
== END 2023-10-11 11:01 | disposition home or self-care (01) ==
LOC: HO.10HDL 11:00
PROVIDERS: Visit Provider Internal Medicine
DX: E11.9 Type 2 diabetes mellitus without complications (principal); F32.4 Major depressive disorder, single episode, in partial remission; G47.33 Obstructive sleep apnea (adult) (pediatric); I10 Essential (primary) hypertension
CPT/HCPCS: 36415; 80053; 80061; 82043; 82570; 83036; 85025

== ENCOUNTER 2024-01-16 09:58 | Outpatient (REF) | payer MEDICARE, MEDICAID, SELFPAY ==
[2024-01-16 11:00] LABS: MANUAL DIFF FLAG NO
[2024-01-16 11:01] LABS: Basophils Percent Auto 0.5 % (0-2); Eosinophils Absolute Auto 0.1 X10*3/uL (0.0-0.4); Eosinophils Percent Auto 0.9 % (0-4); Hematocrit 37.8 % (37.0-47.0); Hemoglobin 11.9 g/dl (12.0-16.0); Imm Gran Abs Auto 0.02 X10*3/uL (0.00-0.03); Imm Gran Pct Auto 0.2 % (0.0-0.4); Lymphocytes Absolute Auto 2.8 X10*3/uL (1.2-4.9); Mean Corpuscular HGB Conc 31.5 g/dl (31.0-35.0); Mean Corpuscular Hemoglobin 28.1 pg (27.0-33.0); Mean Corpuscular Volume 89.2 fL (80.0-98.0); Mean Platelet Volume 10.7 fL (9.4-12.3); Monocytes Absolute Auto 0.6 X10*3/uL (0.1-1.2); Monocytes Percent Auto 7.3 % (2-11); Neutrophils Absolute Auto 4.6 x10*3/uL (2.0-8.3); Neutrophils Percent Auto 57.1 % (45-73); Platelet Count 301 X10*3/uL (160-400); Red Blood Count 4.24 X10*6/uL (4.20-5.50); Red Cell Distribution Width 14.5 % (11.0-16.0); White Blood Count 8.1 X10*3/uL (4.8-10.8)
[2024-01-16 11:11] LABS: Estimated Average Glucose 146 mg/dL; Hemoglobin A1c % 6.7 % (<6.0); Total Hemoglobin (HGBA1C) 2984.3819 umol/L
[2024-01-16 11:43] LABS: Alanine Aminotransferase 31 U/L (0-31); Albumin Level 3.9 g/dL (3.5-5.0); Alkaline Phosphatase 85 U/L (39-117); Anion Gap 9 (12-20); Aspartate Amino Transferase 26 U/L (5-31); Bilirubin Total 0.4 mg/dL (0.0-1.0); Blood Urea Nitrogen 17 mg/dL (9-16); Calcium 8.8 mg/dL (8.4-10.2); Carbon Dioxide 31 mmol/L (22-29); Chloride 105 mmol/L (96-108); Cholesterol 159 mg/dL (<200); Estimated Glomerular Filt Rate > 60; Glucose Random 145 mg/dL (60-115); HDL Cholesterol 52 mg/dL (>40); LDL Cholesterol Calculated 91 mg/dL (<100); Potassium 3.9 mmol/L (3.3-5.1); Sodium 141 mmol/L (135-145); Total Protein 7.5 g/dL (6.5-8.0); Triglycerides 84 mg/dL (<150)
== END 2024-01-16 09:59 | disposition home or self-care (01) ==
LOC: HO.10HDL 09:58
PROVIDERS: Visit Provider Internal Medicine
DX: Z00.00 Encounter for general adult medical examination without abnormal findings (principal); E11.65 Type 2 diabetes mellitus with hyperglycemia; I10 Essential (primary) hypertension
CPT/HCPCS: 36415; 80053; 80061; 83036; 85025

== ENCOUNTER 2024-01-23 12:29 | Outpatient (REF) | payer MEDICARE, MEDICAID, SELFPAY ==
--- NOTE | ~2024-01-23 | XR_ITS ---
EXAMINATION: XR FOOT, LEFT CLINICAL INFORMATION: Rule out fracture COMPARISON: None available. TECHNIQUE: AP, lateral, and oblique views of the left foot. FINDINGS: Bones of the midfoot are well aligned. No tarsal, metatarsal or phalangeal fracture. Mild hallux valgus deformity of the first toe with associated mild degenerative changes of the first MTP joint. There are mild degenerative changes of scattered IP joints. Moderate plantar and small posterior calcaneal enthesophytes. No gross ankle joint effusion. Mild diffuse soft tissue swelling of the foot. XR/XR foot LT min 3V IMPRESSION: Mild degenerative changes of the left foot without fracture. Electronically signed by: Gera Babb MD 01/24/2024 03:45 PM EDT
== END 2024-01-23 12:30 | disposition home or self-care (01) ==
LOC: HO.XRAY 12:29
PROVIDERS: PCP Internal Medicine; Visit Provider Internal Medicine
DX: M79.672 Pain in left foot (principal); M79.89 Other specified soft tissue disorders
CPT/HCPCS: 73630

== ENCOUNTER 2024-04-30 09:31 | Outpatient (REF) | payer MEDICARE, MEDICAID, SELFPAY ==
[2024-04-30 10:40] LABS: Estimated Average Glucose 154 mg/dL; Hemoglobin A1C 165.9507 umol/L
[2024-04-30 11:05] LABS: Alanine Aminotransferase 48 U/L (0-31); Albumin Level 3.7 g/dL (3.5-5.0); Alkaline Phosphatase 93 U/L (39-117); Anion Gap 9 (12-20); Aspartate Amino Transferase 37 U/L (5-31); Bilirubin Total 0.3 mg/dL (0.0-1.0); Blood Urea Nitrogen 21 mg/dL (9-16); Carbon Dioxide 33 mmol/L (22-29); Chloride 103 mmol/L (96-108); Cholesterol 135 mg/dL (<200); Estimated Glomerular Filt Rate > 60; Glucose Random 123 mg/dL (60-115); HDL Cholesterol 39 mg/dL (>40); LDL Cholesterol Calculated 77 mg/dL (<100); Potassium 4.1 mmol/L (3.3-5.1); Sodium 141 mmol/L (135-145); Total Protein 7.9 g/dL (6.5-8.0); Triglycerides 98 mg/dL (<150)
== END 2024-04-30 09:32 | disposition home or self-care (01) ==
LOC: HO.10HDL 09:31
PROVIDERS: Visit Provider Internal Medicine
DX: E11.9 Type 2 diabetes mellitus without complications (principal); E78.00 Pure hypercholesterolemia, unspecified; G47.33 Obstructive sleep apnea (adult) (pediatric); I10 Essential (primary) hypertension; M79.671 Pain in right foot
CPT/HCPCS: 36415; 80053; 80061; 83036

== ENCOUNTER 2024-06-21 15:21 | Emergency (ER) | payer MEDICARE, MEDICAID, SELFPAY ==
[2024-06-21 15:29] VITALS: BP 123/93; PULSE 85; O2SAT 95; BMI 44.1
[2024-06-21 15:39] VITALS: BP 141/53; PULSE 81; RESP 16; TEMP 36.5; O2SAT 95
--- NOTE | 2024-06-21 15:40 | ECG_ITS ---
Test Reason : SYNCOPE Blood Pressure : */* mmHG Vent. Rate : 82 BPM Atrial Rate : 82 BPM P-R Int : 194 ms QRS Dur : 92 ms QT Int : 400 ms P-R-T Axes : 45 7 73 degrees QTcB Int : 467 ms Normal sinus rhythm Moderate voltage criteria for LVH, may be normal variant ( R in aVL , [place] product ) Nonspecific ST and T wave abnormality Abnormal ECG When compared with ECG of 15-Jun-2004 12:51, No significant change was found Referred By: Marie East Electronically Signed By: Eliazar Kerns
[2024-06-21 15:58] VITALS: BP 133/68; BP 141/64; PULSE 79; PULSE 87
[2024-06-21 16:00] VITALS: BP 152/80; PULSE 90
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
[2024-06-21 16:12] LABS: MANUAL DIFF FLAG NO
[2024-06-21 16:13] LABS: Basophils Percent Auto 0.4 % (0-2); Eosinophils Absolute Auto 0.1 X10*3/uL (0.0-0.4); Eosinophils Percent Auto 0.8 % (0-4); Hematocrit 38.5 % (37.0-47.0); Hemoglobin 11.7 g/dl (12.0-16.0); Imm Gran Abs Auto 0.03 X10*3/uL (0.00-0.03); Imm Gran Pct Auto 0.4 % (0.0-0.4); Lymphocytes Absolute Auto 1.8 X10*3/uL (1.2-4.9); Lymphocytes Percent Auto 22.2 % (20-40); Mean Corpuscular HGB Conc 30.4 g/dl (31.0-35.0); Mean Corpuscular Hemoglobin 26.6 pg (27.0-33.0); Mean Corpuscular Volume 87.5 fL (80.0-98.0); Mean Platelet Volume 11.1 fL (9.4-12.3); Monocytes Absolute Auto 0.6 X10*3/uL (0.1-1.2); Monocytes Percent Auto 7.9 % (2-11); Neutrophils Absolute Auto 5.5 x10*3/uL (2.0-8.3); Neutrophils Percent Auto 68.3 % (45-73); Platelet Count 278 X10*3/uL (160-400); Red Cell Distribution Width 15.4 % (11.0-16.0)
[2024-06-21 16:36] LABS: Alanine Aminotransferase 41 U/L (0-31); Albumin Level 3.6 g/dL (3.5-5.0); Anion Gap 13 (12-20); Aspartate Amino Transferase 44 U/L (5-31); B Type Natriuretic Peptide 37 pg/mL (<100); Bilirubin Direct 0.1 mg/dL (0.0-0.5); Bilirubin Total 0.4 mg/dL (0.0-1.0); Blood Urea Nitrogen 19 mg/dL (9-16); Calcium 8.8 mg/dL (8.4-10.2); Carbon Dioxide 26 mmol/L (22-29); Chloride 103 mmol/L (96-108); Creatinine Clr Calc Pharmacy 107.8; Estimated Glomerular Filt Rate > 60; Glucose Random 160 mg/dL (60-115); Magnesium 1.8 mg/dL (1.6-2.6); Potassium 4.1 mmol/L (3.3-5.1); Sodium 138 mmol/L (135-145); Total Protein 7.9 g/dL (6.5-8.0)
[2024-06-21 16:37] LABS: Troponin-I High Sensitivity 4.2 ng/L (<3.5-17.0)
[2024-06-21 16:51] LABS: TSH reflex Free T4 1.13 uIU/mL (0.32-4.0)
[2024-06-21 17:00] LABS: Influenza A PCR NEGATIVE (Negative); Influenza B PCR NEGATIVE (Negative); Resp Syncy Virus RNA Qual PCR NEGATIVE (Negative); SARS COV2 PCR INHOUSE NEGATIVE (Negative)
--- NOTE | 2024-06-21 17:00 | PC.NURSE ---
pt becoming increasingly tearful during conversation w/ clergy member. pt verbalizing SI w/ no specific plan d/t increased stressors at home. pt reporting that she has been having family issues in regards to son being addicted to drugs and 2 recent deaths in the family (1 including her ). pt denies HI/ETOH/substance use/AV/VH. pt denies previous attempts in the past. kiln charger made aware. pt changed into ligature free attire. belongings list created by [employer]
[2024-06-21 17:32] LABS: Ethanol < 10 mg/dL
[2024-06-21 17:33] VITALS: O2SAT 98
--- NOTE | 2024-06-21 17:37 | PC.NURSE ---
Report received from uLlu OVIEDO.
--- NOTE | 2024-06-21 17:47 | PC.NURSE ---
report given to PREET Simmons in the pod. pt transferred to [facility] at this time.
[2024-06-21 18:06] LABS: Appearance Urine Clear; Color Urine Yellow; Glucose Urine UA Negative (Negative); Leukocyte Esterase Urine Negative (Negative); Nitrite Urine Negative (Negative); Specific Gravity - Urine 1.015 (1.005-1.025); Urine Blood Negative (Negative); Urine Ketones Negative (Negative); Urine Protein Trace mg/dL (Neg-Trace)
[2024-06-21 18:16] LABS: Amphetamine Screen Urine Not Detected (Not Detect); Barbiturates, Urine Not Detected (Not Detect); Benzodiazepines Screen Urine Not Detected (Not Detect); Buprenorphine Scr Not Detected (Not Detect); Cannabinoid Screen Urine Not Detected (Not Detect); Cocaine Screen Urine Not Detected (Not Detect); Fentanyl, urine Not Detected (Not Detect); Methadone Screen, Urine Not Detected (Not Detect); Opiate Screen Urine Not Detected (Not Detect); Oxycodone Screen Urine Not Detected (Not Detect); Phencyclidine Screen Urine Not Detected (Not Detect)
[2024-06-21 18:27] LABS: Alkaline Phosphatase 89 U/L (39-117)
[2024-06-21 18:57] VITALS: BP 00/00; PULSE 0; RESP 16; TEMP -17.7; TEMP 0; O2SAT 98
== END 2024-06-21 18:59 | disposition home or self-care (01) ==
PROVIDERS: Physician Assistant; Emergency Provider Emergency Medicine; PCP Internal Medicine
DX: R55 Syncope and collapse (principal); F41.0 Panic disorder [episodic paroxysmal anxiety]; R00.2 Palpitations; R11.0 Nausea; R42 Dizziness and giddiness; F43.9 Reaction to severe stress, unspecified; R06.02 Shortness of breath; F41.9 Anxiety disorder, unspecified; Z03.818 Encounter for observation for suspected exposure to other biological agents ruled out; Z87.891 Personal history of nicotine dependence; Z79.899 Other long term (current) drug therapy; Z51.81 Encounter for therapeutic drug level monitoring
CPT/HCPCS: 0241U; 80048; 80076; 80307; 81003; 83735; 83880; 84443; 84484; 85025; 93005; 99285; S9485

== ENCOUNTER → 2024-06-21 15:40 | Outpatient (BNV) | payer MEDICARE, MEDICAID, SELFPAY | PROVIDERS: Emergency Provider Emergency Medicine; PCP Internal Medicine; Visit Provider Internal Medicine Cardiovascular Disease | DX: R94.31 Abnormal electrocardiogram [ECG] [EKG] (principal); R55 Syncope and collapse | CPT/HCPCS: 93010 ==

== ENCOUNTER 2024-12-03 09:33 | Outpatient (REF) | payer MEDICARE, MEDICAID, SELFPAY ==
--- OUTSIDE RECORDS SUMMARY | 2024-12-03 10:38 | XMS_ITS | Encounter Summary ---
Author Organization [facility] Address [address] [place] [address] Phone Care Team Providers Care Landmen Name Role Phone Monika Carmona MD Primary Care Provider Encounter Details Date Type Department Care Team (Late st Contact Info) Description 12/27/2018 Procedure Pass [facility] Admitting Dept Virtual Department [address] [place] [address] Social History Tobacco Use Types Packs/Day Years Used Date Smoking Tobacco: Former Cigarettes Q uit: 04/26/2011 Smokeless Tobacco: Never Alcohol Use Standard Drinks/Week Comments No 0 (1 standard drink = 0.6 oz pur e alcohol) Comments No Sex and Gender Information Value Date Recorded Sex Assigned at Not on file Legal Sex Female 9:56 PM EDT Gender Identity Not on file Sexual Orientation Not on file documented as of this encounter Plan of Treatment Not on file documented as of this encounter Visit Diagnoses Not on filedocumented in this encounter Care Teams Landmen Relationship Specialty Start Date End Date Monika Carmona MD [address] [place] [address] [place] [id number] PCP - General 01/17/17 documented as of this encounter Additional Source Comments The information contained in this document represents components of the legal health record. It is not the complete legal health record.[facility]
--- OUTSIDE RECORDS SUMMARY | 2024-12-03 10:38 | XMS_ITS | Clinical Summary ---
Author Organization [facility] Address [address] [place] [address] Phone Care Team Providers Care Felt Pad Cutter Name Role Phone Monika Carmona MD Primary Care Provider Allergies No known active allergies Medications lisinopril (PRINIVIL,ZESTR IL) 20 MG tablet 1 tablet Active SENNA, WITH SUGAR, ORAL Active tiZANidine (ZANAFLEX) 2 MG tablet 1 tablet as needed Active docusate sodium (COLACE) 100 MG capsule 1 capsule as needed Active albuterol 90 mcg/actuation inhaler Inhale 2 puffs into the lungs every 6 (six) hours as needed for wheezing. Active clonazePAM (KLONOPIN) 0.5 MG tablet Take 0.5 mg by mouth 2 (two) times a day as needed for anxiety. Active DULoxetine (CYMBALTA) 20 MG capsule Take 20 mg by mouth daily. Active SITagliptin (JANUVIA) 100 MG tablet Take 100 mg by mouth daily. Active melatonin 5 mg Tab Take by mouth nightly at bedtime. Active Social History Tobacco Use Types Packs/Day Years Used Date Smoking Tobacco: Former Cigarettes Q uit: 04/26/2011 Smokeless Tobacco: Never Alcohol Use Standard Drinks/Week Comments No 0 (1 standard drink = 0.6 oz pur e alcohol) Education Answer Date Recorded Are you interested in more education? Not on veda e 07/29/2022 Are you concerned about learning? Not on file 07/29/2022 No 07/29/2022 No 07/29/2022 Digital Access Answer Date Recorded No 08/27/2022 No 08/27/2022 Reliable internet access at home? Not on file 08/27/2022 Device with a working camera? Not on file Comments No Sex and Gender Information Value Date Recorded Sex Assigned at Not on file Legal Sex Female 9:56 PM EDT Gender Identity Not on file Sexual Orientation Not on file Last Filed Vital Signs Vital Sign Reading Time Taken Comments Blood Pressure 107/75 12/27/2018 11:17 AM EDT Pulse 72 12/27/2018 9:51 AM EDT Temperature 36.1 C (97 F) 12/27/2018 11:02 AM EDT Respiratory Rate 20 12/27/2018 11:17 AM EDT Oxygen Saturation 96% 12/27/2018 11:17 AM EDT Inhaled Oxygen Concentration - - Weight 117.5 kg (259 lb) 12/27/2018 9:51 AM EDT Height 170.2 cm (5' 7 ) 12/27/2018 9:51 AM EDT Body Mass Index 40.57 12/27/2018 9:51 AM EDT Plan of Treatment Health Maintenance Due Date Last Done Comments Adult Td,Tdap Booster 1955 LIPID PANEL 1955 DEPRESSION SCREENING 1966 SMOKING Hx and SMOKELESS TOB ACCO SCREENING 10/09/1967 HEPATITIS C SCREENING 1972 COLOGUARD 10/09/1999 FIT TEST 10/09/1999 FOBT 10/09/1999 SIGMOIDOSCOPY 10/09/1999 VIRTUAL COLONOSCOPY 10/09/1999 PNEUMOCOCCAL VACCINES (50+ y ears) (1 of 1 - PCV) 2004 ZOSTER VACCINES (1 of 2) 2004 CREATININE LEVEL 02/28/2018 02/28/2017 POTASSIUM LEVEL 02/28/2018 02/28/2017 MAMMOGRAM 03/07/2020 03/07/2018 INFLUENZA VACCINE (#1) 2024 COVID-19 VACCINE ( - 2023-2 5 season) 2024 COLONOSCOPY 12/27/2028 12/27/2018 COLORECTAL CANCER SCREENING 12/27/2028 RSV VACCINE (1 - 1-dose 75+ series) 2029 OSTEOPOROSIS SCREENING INITI AL (ONE-TIME) Completed 01/18/2024 HEPATITIS A VACCINES Aged Out No long er eligible based on patient's age to complete this topic HIB VACCINES Aged Out No longer eligi ble based on patient's age to complete this topic MENINGOCOCCAL VACCINES (ACWY) Aged Out No longer eligible based on patient's age to complete this topic MENINGOCOCCAL VACCINES (B) Aged Out N o longer eligible based on patient's age to complete this topic Medical Devices Not on file Procedures Procedure Name Priority Date/Time Associated Diagnosis Comments BD DXA AXIAL (SPINE) WITH HIP Routine 01/18/2024 10:12 AM EDT Other specified disorders of bone density and structure, other site ENDOSCOPY, COLON 12/27/2018 10:2 7 AM EDT BI MAMMOGRAM SCREENING WITH TOMOSYNTHESIS WITH CAD (BILATERAL) Routine 03/07/2018 10:50 AM EST Breast screening COMPREHENSIVE METABOLIC PANEL Routine 02/28/2017 3:58 PM EST Right upper quadrant abdominal tenderness, rebound tenderness presence not specified from Last 3 Months or Most Recently Relevant to Health Maintenance Results * BD DXA AXIAL (SPINE) WITH HIP (01/18/2024 10:12 AM EDT) Anatomical Region Laterality Modality Bone Density Bone Density 01/18/2024 10:0 7 AM EDT Impressions 01/18/2024 10:15 AM EDT Interpretation: Normal bone mineral density. Narrative 01/18/2024 10:15 AM EDT Referred By: SAYRA BARNETT Indications: Osteoporosis Scanner: Biocroí A with serial# of [id number] located at [facility] Bone Density Scan (DXA) 01/18/24 Details of prior DXA scans are available by clicking View Image BMD T- Z- Skeletal Site gm/cm2 score score BMD Change Since Prior Scan ------ ----- ----- PA Spine (L1-L4) 1.285 2.20 4.20 N/A Total Hip (Left) 1.270 2.70 3.70 N/A Femoral Neck (Left) 1.127 2.50 3.80 N/A Total Hip (Right) 1.305 3.00 4.00 N/A Femoral Neck (Right) 0.981 1.20 2.60 N/A ------ ----- ----- * Denotes significant change when >= 0.022 g/cm2 for the spine, 0.027 g/cm2 for the total hip, 0.029 g/cm2 for the femoral neck. Interpretation: Normal bone mineral density. Technical Quality: The PA Spine scan was of marginal quality because of scoliosis (which can decrease or increase BMD) and sclerosis or fracture (which increase BMD). FRAX: A FRAX(r) score is not provided because the patient has normal bone density. Additional Information: -World Health Organization criteria classify adults based on lowest T-score at PA spine, hip or forearm: Normal (T-score >= -1.0), Osteopenia (T-score between -1 and -2.5), or Osteoporosis (T-score <= -2.5). At [facility], T-scores are compared to peak bone density of a young white gender matched reference population. - For premenopausal women and men under the age of 50, Z-scores (comparison to age, gender, and ethnicity matched reference population) are used: Above expected range for age (Z-score >= 2.0), Within expected range of age (Z-score 1.9 to -1.9), or Below expected range for age (Z-score <= -2.0). - The Bone Health and Osteoporosis Foundation recommends that treatment be considered in men aged more than 50 years and in postmenopausal women with ANY of the following: Prior hip or vertebral fractures; T-score of <= -2.5 at the PA spine or hip; or 10 year fracture probability by FRAX of >= 3% for the hip or >= 20% for major osteoporotic fracture. - The FRAX algorithm (https://www.edilma.ac.uk/FRAX/tool.aspx) is designed to predict 10-year fracture risk in treatment-naive adults between the ages of 40 and 90. It is not intended to be used in those receiving pharmacologic osteoporosis treatment. - Including race/ethnicity in the generation of T- or Z-scores or in the FRAX calculation is complicated, and currently undergoing active review to ensure that we can give patients the best information on their risk of fracture. -Some prior studies may not be compatible with our comparison software. -Click on View Full Report to see subsequent pages with images and prior bone density results. Reviewed By: Sadi Brito MD on 01/18/2024 10:15:39 Procedure Note Sadi Brito MD - 01/18/2024 Referred By: SAYRA BARNETT Indications: Osteoporosis Scanner: Biocroí A with serial# of [id number] located at [facility] Bone Density Scan (DXA) 01/18/24 Details of prior DXA scans are available by clicking View Image BMD T- Z- Skeletal Site gm/cm2 score score BMD Change Since Prior Scan ------ ----- PA Spine (L1-L4) 1.285 2.20 4.20 N/A Total Hip (Left) 1.270 2.70 3.70 N/A Femoral Neck (Left) 1.127 2.50 3.80 N/A Total Hip (Right) 1.305 3.00 4.00 N/A Femoral Neck (Right) 0.981 1.20 2.60 N/A ------ ----- * Denotes significant change when >= 0.022 g/cm2 for the spine, 0.027g/cm2 for the total hip, 0.029 g/cm2 for the femoral neck. Interpretation: Normal bone mineral density. Technical Quality: The PA Spine scan was of marginal quality because of scoliosis (which can decrease or increase BMD) and sclerosis or fracture (which increase BMD). FRAX: A FRAX(r) score is not provided because the patient has normal bone density. Additional Information: -World Health Organization criteria classify adults based on lowestT-score at PA spine, hip or forearm: Normal (T-score >= -1.0), Osteopenia (T-score between -1 and -2.5), or Osteoporosis (T-score <= -2.5). At [facility], T-scores are compared to peak bone density of a young white gender matched reference population. - For premenopausal women and men under the age of 50, Z-scores(comparison to age, gender, and ethnicity matched reference population) are used:Above expected range for age (Z-score >= 2.0), Within expected range of age (Z-score 1.9 to -1.9), or Below expected range for age (Z-score <= -2.0). - The Bone Health and Osteoporosis Foundation recommends that treatment be considered in men aged more than 50 years and in postmenopausal women with ANY of the following: Prior hip or vertebral fractures; T-score of <= -2.5 at the PA spine or hip; or 10 year fracture probability by FRAX of >= 3%for the hip or >= 20% for major osteoporotic fracture. - The FRAX algorithm (https://www.edilma.ac.uk/FRAX/tool.aspx) is designed to predict 10-year fracture risk in treatment-naive adultsbetween the ages of 40 and 90. It is not intended to be used in those receiving pharmacologic osteoporosis treatment. - Including race/ethnicity in the generation of T- or Z-scores or in the FRAX calculation is complicated, and currently undergoing active review to ensure that we can give patients the best information on their risk of fracture. -Some prior studies may not be compatible with our comparison software. -Click on View Full Report to see subsequent pages with images and prior bone density results. Reviewed By: Sadi Brito MD on 01/18/2024 10:15:39 IMPRESSION: Interpretation: Normal bone mineral density. us Sayra Vergara Ericka [employer] INST[employer]ER IMG BD BONE DENSITY DEXA Final R esult * ENDOSCOPY, COLON (12/27/2018 10:27 AM EDT) Narrative Transcriptions Andrea Malone MD - 12/27/2018 10:27 AM EDT Patient Name: Keiko Vera Attending MD:: ANDREA MALONE MD Procedure Date: 12/27/2018 10:27 AM Date of : 1955 Age: 63 Admit Type: Outpatient Gender: Female Room: [place] [address] Referring MD: Monika Carmona MD Exam Type: Colonoscopy Indications: Screening for colorectal malignant neoplasm, Last colonoscopy: 2007 Medications: Monitored Anesthesia Care Procedure: Informed consent was obtained from the patient after discussion of the indications, limitations,alternatives, benefits, and risks of the procedure. Risksspecifically discussed include but are not limited to medication reactions, missed lesions, bleeding, perforation, orthe need for emergent surgery. Throughout the procedure, the patient's blood pressure, pulse, end-tidal CO2, and oxygen saturations were monitored continuously. The Olympus adult variable colonoscope [id number] #[id number] was introduced through the anus and advanced to theterminal ileum. The colonoscopy was performed withoutdifficulty. The patient tolerated the procedure well. The qualityof the bowel preparation was good. Complications: No immediate complications. Estimated blood loss:None. Findings: The perianal and digital rectal examinations werenormal. A 4 mm polyp was found in the ascending colon. Thepolyp was sessile. The polyp was removed with a hot snare. Resection and retrieval were complete. Multiple small-mouthed diverticula were found in the sigmoid colon, descending colon and ascending colon. The rectum, recto-sigmoid colon, sigmoid colon,descending colon, splenic flexure, transverse colon, hepaticflexure, cecum, appendiceal orifice, ileocecal valve, rectum (on retroflexion) and ascending colon (on retroflexion) appeared normal. Impression: - One 4 mm polyp in the ascending colon, removed with a hot snare. Resected and retrieved. - Diverticulosis in the sigmoid colon, in thedescending colon and in the ascending colon. - The rectum, recto-sigmoid colon, sigmoid colon, descending colon, splenic flexure, transverse colon, hepatic flexure, cecum, appendiceal orifice, ileocecal valve and ascending colon are normal. Recommendation: - Discharge patient to home. - High fiber diet. - Continue present medications. - Await pathology results. - Repeat colonoscopy 5 years if patholopgy showsadenama, 10 years if hyperplastic. for surveillance based on pathology results. - You have diverticulosis so please eat a high fiberdiet. ANDREA MALONE MD 12/27/2018 11:01:49 AM This report has been signed electronically. Number of Addenda: 0 Note Initiated On: 12/27/2018 10:27 AM Procedure Code(s): --- Professional --- 54946, Colonoscopy, flexible; with removal of tumor(s), polyp(s), or other lesion(s) by snare technique --- Technical --- 76616, Colonoscopy, flexible; with removal of tumor(s), polyp(s), or other lesion(s) by snare technique Diagnosis Code(s): --- Professional --- Z12.11, Encounter for screening for malignant neoplasm of colon D12.2, Benign neoplasm of ascending colon K57.30, Diverticulosis of large intestine without perforation orabscess without bleeding --- Technical --- Z12.11, Encounter for screening for malignant neoplasm of colon D12.2, Benign neoplasm of ascending colon K57.30, Diverticulosis of large intestine without perforation orabscess without bleeding CPT copyright 2018 [employer]. All rights reserved. The codes documented in this report are preliminary and upon oracle soa architect reviewmay be revised to meet current compliance requirements. [address] [place] [id number] [place] Monika Carmona MD GI PROCEDURE ORDERABLE S Final Result * BI MAMMOGRAM SCREENING WITH TOMOSYNTHESIS WITH CAD (BILATERAL) (03/07/2018 10:50 AM EST) Anatomical Region Laterality Modality Breast Left, Breast Right, Breast Bilateral Bila teral Mammography 03/07/2018 1:35 PM EST Impressions 03/07/2018 4:15 PM EST BILATERAL BREASTS: Negative, no evidence of malignancy. Normal interval follow- up is recommended in 12 months. Bi-RADS: BI-RADS CATEGORY: 1 - Negative. DENSITY: There are scattered fibroglandular densities. POS - [id number] Narrative 03/07/2018 4:15 PM EST STUDY: Bilateral screening mammography with tomosynthesis and CAD TECHNIQUE: Bilateral full-field digital screening mammography is obtained and read in conjunction with computer-aided detection. Tomosynthesis as well as 2-D C view imaging were obtained. COMPARISON: Comparison made to multiple prior, most recent August 11, 2016, and most remote December 04, 2008. BREAST COMPOSITION: There are scattered areas of fibroglandular density BILATERAL BREASTS: No significant masses, calcifications or other abnormalities are seen. Procedure Note Karol Washburn MD - 03/08/2018 STUDY: Bilateral screening mammography with tomosynthesis and CAD TECHNIQUE: Bilateral full-field digital screening mammography is obtainedand read in conjunction with computer-aided detection. Tomosynthesis aswell as 2-D C view imaging were obtained. COMPARISON: Comparison made to multiple prior, most recent August 11, 2016,and most remote December 04, 2008. BREAST COMPOSITION: There are scattered areas of fibroglandulardensity BILATERAL BREASTS: No significant masses, calcifications or otherabnormalities are seen. IMPRESSION: BILATERAL BREASTS: Negative, no evidence of malignancy. Normal intervalfollow-up is recommended in 12 months. Bi-RADS: BI-RADS CATEGORY: 1 - Negative. DENSITY: There are scattered fibroglandular densities. POS - [id number] us Monika Carmona MD IMG MG EXAMS Final Result * (ABNORMAL) Comprehensive metabolic panel (02/28/2017 3:58 PM EST) SODIUM 138 133 - 146 mmol/L [facility] POTASSIUM 3.8 3.3 - 5.1 mmol/L [facility] CHLORIDE 94(L) 96 - 108 mmol/L [facility] CO2 30 21 - 35 mmol/L [facility] BUN 22(H) 6 - 19 mg/dL [facility] CREATININE 0.60 0.5 - 1.5 mg/dL [facility] GLUCOSE 106(H) 70 - 99 mg/dL [facility] ALBUMIN 3.9 3.9 - 4.8 g/dL [facility] TOTAL PROTEIN 7.5 6.5 - 8.0 g/dL [facility] CALCIUM 8.8 8.4 - 10.3 mg/dL [facility] ALKALINE PHOSPHATASE 91 39 - 117 U/L [facility] TOTAL BILIRUBIN 0.3 0 - 1.2 mg/dL [facility] AST 31 0 - 37 U/L [facility] ALT 46(H) 0 - 40 U/L [facility] GLOBULIN 3.6 1 - 4.8 g/dL [facility] EGFR >60 >60 mL/min/1.7 3m2 [facility] Comment:Abnormal if <60. If patient is -[place], multiply the result by 1.21. ANION GAP 18 10 - 20 mmol/L [facility] Blood 02/28/2017 3:58 PM EST 02/28/2017 4:01 PM EST us Sayra Barnett NP LAB BLOOD ORDERABLES Final Resul t [facility] [address] [place] [address] from Last 3 Months or Most Recently Relevant to Health Maintenance Insurance MEDICARE PART A & B [facility] MEDICARE PART A & [facility] [place] [address] [address] MEDICARE PART A & B [facility] [place] [address] [address] [place] [address] MED[facility]ARE PART A & B [facility] PART A & B [facility] Care Teams Felt Pad Cutter Relationship Specialty Start Date End Date Monika Carmona MD [address] [place] [address] [place] [phone] PCP - General 01/17/17 Additional Source Comments The information contained in this document represents components of the legal health record. It is not the complete legal health record.[facility]
--- OUTSIDE RECORDS SUMMARY | 2024-12-03 10:38 | XMS_ITS | Encounter Summary ---
Author Organization [facility] Address [address] [place] [address] Phone Care Team Providers Care Epic Professional Name Role Phone Monika Carmona MD Primary Care Provider Encounter Details Date Type Department Care Team (Late st Contact Info) Description 12/11/2017 Procedure [facility] Scan - [facility] [address] [place] [address] Social History Tobacco Use Types Packs/Day Years Used Date Smoking Tobacco: Former Cigarettes Q uit: 04/26/2011 Smokeless Tobacco: Never Alcohol Use Standard Drinks/Week Comments No 0 (1 standard drink = 0.6 oz pur e alcohol) Comments Unknown Sex and Gender Information Value Date Recorded Sex Assigned at Not on file Legal Sex Female 9:56 PM EDT Gender Identity Not on file Sexual Orientation Not on file documented as of this encounter Plan of Treatment Not on file documented as of this encounter Visit Diagnoses Not on filedocumented in this encounter Care Teams Epic Professional Relationship Specialty Start Date End Date Monika Carmona MD [address] [place] [address] [place] [phone] PCP - General 01/17/17 documented as of this encounter Additional Source Comments The information contained in this document represents components of the legal health record. It is not the complete legal health record.[facility]
--- OUTSIDE RECORDS SUMMARY | 2024-12-03 10:38 | XMS_ITS | Encounter Summary ---
Author Organization [facility] Address [address] [place] [address] Phone Care Team Providers Care Inventory Assistant Name Role Phone Monika Carmona MD Primary Care Provider Encounter Details Date Type Department Care Team (Late st Contact Info) Description 12/14/2018 Ancillary Orders Virtual Department [address] [place] [address] Monika Carmona MD [address] [place] [address] [place] [phone] Breast screening Social History Tobacco Use Types Packs/Day Years [...] documented as of this encounter Visit Diagnoses Diagnosis Breast screening Breast screening, unspecified documented in this encounter Care Teams Inventory Assistant Relationship Specialty Start Date End Date Monika Carmona MD [address] [place] [address] [place] [phone] PCP - General 10/17/17 documented as of this encounter Additional Source Comments The information contained in this document represents components of the legal health record. It is not the complete legal health record.[facility]
--- OUTSIDE RECORDS SUMMARY | 2024-12-03 10:38 | XMS_ITS | Encounter Summary ---
Author Organization [facility] Address [address] [place] [address] Phone Care Team Providers Care File Conversion Operator Name Role Phone Monika Carmona MD Primary Care Provider Encounter Details Date Type Department Care Team (Latest Contact Info) Description 04/11/2019 Ancillary Orders [facility], X-Ray - [address] [address] Sayra Barnett, [employer] [address] [place] [phone] [email or web address] Bilateral primary osteoarthritis of knee Social History Tobacco Use Types Packs/Day Years [...] on file documented as of this encounter Results * XR KNEE 3 VIEW (RIGHT) (04/11/2019 10:49 AM EST) Anatomical Region Laterality Modality Knee Right Radiographic Lana ging 04/12/2019 5:42 PM EST Impressions 04/12/2019 5:44 PM EST 1. No acute fracture or dislocation. 2. Quadriceps enthesopathy similar to 2014. POS - [id number] Narrative 04/12/2019 5:44 PM EST EXAM: XR KNEE 3 VIEW (RIGHT) COMPARISON: May 01, 2013 FINDINGS: No fracture or destructive bone lesion. Anatomic alignment is maintained. Calcification at insertion of the quadriceps tendon is similar to comparison study. Joint spaces are preserved. No suprapatellar joint effusion. Procedure Note Karol Washburn MD - 04/12/2019 EXAM: XR KNEE 3 VIEW (RIGHT) COMPARISON: May 01, 2013 FINDINGS: No fracture or destructive bone lesion. Anatomic alignment is maintained.Calcification at insertion of the quadriceps tendon is similar tocomparison study. Joint spaces are preserved. No suprapatellar jointeffusion. IMPRESSION: 1. No acute fracture or dislocation. 2. Quadriceps enthesopathy similar to 2014. POS - [id number] us Sayra Barnett [employer] IMG XR LOWER EXTREMITY Final Res ult documented in this encounter Visit Diagnoses Diagnosis Bilateral primary osteoarthritis of knee Bilateral primary osteoarthritis of knee documented in this encounter Care Teams File Conversion Operator Relationship Specialty Start Date End Date Monika Caromna MD [address] [place] [address] [place] [phone] PCP - General 01/17/17 documented as of this encounter Additional Source Comments The information contained in this document represents components of the legal health record. It is not the complete legal health record.[facility]
--- OUTSIDE RECORDS SUMMARY | 2024-12-03 10:38 | XMS_ITS | Encounter Summary ---
Author Organization [facility] Address [address] [place] [address] Phone Care Team Providers Care Cork Tipper Name Role Phone Monika Carmona MD Primary Care Provider Encounter Details Date Type Department Care Team (Late st Contact Info) Description 12/11/2017 Ancillary Orders Virtual Department [address] [place] [address] Katey Gregorio PA [address] [place] [address] Pain of upper abdomen Social History Tobacco Use Types Packs/Day Years [...] documented as of this encounter Results * CT ABDOMEN/PELVIS WITH CONTRAST (12/28/2017 12:24 PM EDT) Anatomical Region Laterality Modality Abdomen, Pelvis Computed Tomogra phy 12/28/2017 1:09 PM EDT Impressions 12/28/2017 1:25 PM EDT 1. No acute findings in the abdomen/pelvis. 2. Interval increase in size of multiple bilateral renal lesions, when compared from 2015. Ultrasound can be obtained for better evaluation of the cysts. 3. Sigmoid diverticulosis. TOTAL CTDIvol: 24.7 mGy POS - [id number] Narrative 12/28/2017 1:25 PM EDT EXAM: CT OF ABDOMEN AND PELVIS WITH INTRAVENOUS CONTRAST COMPARISON: March 03, 2017. May 23, 2014 INDICATION: Pain of upper abdomen persistent TECHNIQUE: CT scan of the abdomen and pelvis was performed following the intravenous administration of 100 cc of Omnipaque 240 and oral contrast. Coronal and sagittal reformatted images were generated. Automated exposure control utilized. FINDINGS: LOWER THORAX: Minimal mosaic pattern of the lungs may represent small airways disease. No lung consolidation. No pleural effusion. HEPATOBILIARY: Liver is normal in size, contour and density. No extra- or intrahepatic ductal dilatation. Status pos cholecystectomy. SPLEEN: No splenomegaly. PANCREAS: Diffuse fatty atrophy. No pancreatic ductal dilatation. ADRENAL GLANDS: No mass or nodule. KIDNEYS AND URETERS: The kidneys enhance symmetrically. Multiple bilateral renal hypodense lesions are unchanged in number, however, increased in size from 2015, for example, the one located in the anterior aspect of the right lower pole measuring 2.5 cm (measured 1.0 cm in 2015). No hydronephrosis, hydroureter or enhancing mass. STOMACH/GI TRACT: Oral contrast reaches the ileum without obstruction. Stomach is partially distended, and filled with oral contrast. There is no bowel distension, wall thickening, or inflammation. Normal appendix identified on the axial image 3:67. Scattered diverticula along the sigmoid colon. PELVIC ORGANS/BLADDER: Urinary bladder is not distended but appears grossly unremarkable. Uterus and bilateral adnexa appear unremarkable. PERITONEUM AND RETROPERITONEUM: No free fluid, fluid collection or free air. LYMPH NODES: No enlarged retroperitoneal, mesenteric or pelvic lymph nodes. VESSELS: Minimal atherosclerotic calcifications along normal-caliber abdominal aorta and iliac arteries. Inferior vena cava is unremarkable. BONES AND SOFT TISSUES: Soft tissues are unremarkable. No acute or suspicious osseous abnormalities. Procedure Note Karol Washburn MD - 12/28/2017 EXAM: CT OF ABDOMEN AND PELVIS WITH INTRAVENOUS CONTRAST COMPARISON: March 03, 2017. May 23, 2014 INDICATION: Pain of upper abdomen persistent TECHNIQUE: CT scan of the abdomen and pelvis was performed following theintravenous administration of 100 cc of Omnipaque 240 and oral contrast.Coronal and sagittal reformatted images were generated. Automatedexposure control utilized. FINDINGS: LOWER THORAX: Minimal mosaic pattern of the lungs may represent smallairways disease. No lung consolidation. No pleural effusion. HEPATOBILIARY: Liver is normal in size, contour and density. Noextra- or intrahepatic ductal dilatation. Status pos cholecystectomy. SPLEEN: No splenomegaly. PANCREAS: Diffuse fatty atrophy. No pancreatic ductal dilatation. ADRENAL GLANDS: No mass or nodule. KIDNEYS AND URETERS: The kidneys enhance symmetrically. Multiplebilateral renal hypodense lesions are unchanged in number, however,increased in size from 2015, for example, the one located in the anterioraspect of the right lower pole measuring 2.5 cm (measured 1.0 cm in 2015).No hydronephrosis, hydroureter or enhancing mass. STOMACH/GI TRACT: Oral contrast reaches the ileum without obstruction.Stomach is partially distended, and filled with oral contrast. There is nobowel distension, wall thickening, or inflammation. Normal appendixidentified on the axial image 3:67. Scattered diverticula along thesigmoid colon. PELVIC ORGANS/BLADDER: Urinary bladder is not distended but appearsgrossly unremarkable. Uterus and bilateral adnexa appear unremarkable. PERITONEUM AND RETROPERITONEUM: No free fluid, fluid collection or freeair. LYMPH NODES: No enlarged retroperitoneal, mesenteric or pelvic lymphnodes. VESSELS: Minimal atherosclerotic calcifications along normal-caliberabdominal aorta and iliac arteries. Inferior vena cava isunremarkable. BONES AND SOFT TISSUES: Soft tissues are unremarkable. No acute orsuspicious osseous abnormalities. IMPRESSION: 1. No acute findings in the abdomen/pelvis. 2. Interval increase in size of multiple bilateral renal lesions, whencompared from 2015. Ultrasound can be obtained for better evaluation ofthe cysts. 3. Sigmoid diverticulosis. TOTAL CTDIvol: 24.7 mGy POS - [id number] Katey VARGAS IMG CT ABD/PELVIS Final Res ult documented in this encounter Visit Diagnoses Diagnosis Pain of upper abdomen Pain of upper abdomen documented in this encounter Care Teams Cork Tipper Relationship Specialty Start Date End Date Monika Carmona MD [address] [place] [address] [place] [phone] PCP - General 01/17/17 documented as of this encounter Additional Source Comments The information contained in this document represents components of the legal health record. It is not the complete legal health record.[facility]
--- OUTSIDE RECORDS SUMMARY | 2024-12-03 10:38 | XMS_ITS | Encounter Summary ---
Author Organization [facility] Address [address] [place] [address] Phone Care Team Providers Care Grooming Salon Manager Name Role Phone Monika Carmona MD Primary Care Provider Encounter Details Date Type Department Care Team (Late st Contact Info) Description 12/18/2018 Ancillary Orders [facility], X-Ray - [facility] [address] [place] [address] Anthony Soni, DO [address] [place] [address] [email or web address] Pain Social History Tobacco Use Types Packs/Day Years [...] as of this encounter Results * XR WRIST 3 OR MORE VIEWS (RIGHT) (12/18/2018 10:37 AM EDT) Anatomical Region Laterality Modality Wrist Right Radiographic Lana ging 12/18/2018 11:2 0 AM EDT Impressions 12/18/2018 11:21 AM EDT Unremarkable plain film appearance of the wrist. POS [id number] Narrative 12/18/2018 11:21 AM EDT 4 views. Compare to today's hand films. No significant arthritic changes. No signs of trauma, tumor or infection. No obvious static instability pattern. Procedure Note Jw Schneider MD - 12/18/2018 4 views. Compare to today's hand films. No significant arthritic changes. No signs of trauma, tumor or infection. No obvious static instability pattern. IMPRESSION: Unremarkable plain film appearance of the wrist. 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 POS [id number] Narrative 12/18/2018 11:20 AM EDT 3 views. No comparison Well preserved bone mineral density. Very minimal joint space narrowing in the third and fourth DIP joints and the first MCP joint typical of osteoarthritis. No evidence of an erosive or inflammatory arthritis. No signs of trauma, tumor or infection. Procedure Note Jw Schneider MD - 12/18/2018 3 views. No comparison Well preserved bone mineral density. Very minimal joint space narrowing in the third and fourth DIP joints andthe first MCP joint typical of osteoarthritis. No evidence of an erosive or inflammatory arthritis. No signs of trauma, tumor or infection. 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 POS [id number] us Anthony Soni DO IMG XR UPPER EXTREMITY Final Result documented in this encounter Visit Diagnoses Diagnosis Pain Generalized pain Pain Generalized pain Pain Generalized pain documented in this encounter Care Teams Grooming Salon Manager Relationship Specialty Start Date End Date Monika Carmona MD [address] [place] [address] [place] [phone] PCP - General 01/17/17 documented as of this encounter Additional Source Comments The information contained in this document represents components of the legal health record. It is not the complete legal health record.[facility]
--- OUTSIDE RECORDS SUMMARY | 2024-12-03 10:38 | XMS_ITS | Encounter Summary ---
Author Organization [facility] Address [address] [place] [address] Phone Care Team Providers Care Canal Superintendent Name Role Phone Monika Carmona MD Primary Care Provider Encounter Details Date Type Department Care Team (Latest Contact Info) Description 10/19/2023 Transcribe Orders Virtual Department [address] [place] [address] Sayra Barnett, SENIOR LEAD JAVA DEVELOPER [address] [place] [phone] [email or web address] Other specified disorders of bone density and structure, other site (Primary Dx) Social History Tobacco Use Types Packs/Day Years [...] documented as of this encounter Results * BD DXA AXIAL (SPINE) WITH HIP (01/18/2024 10:12 AM EDT) Anatomical Region Laterality Modality Bone Density Bone Density 01/18/2024 10:0 7 AM EDT Impressions 01/18/2024 10:15 AM EDT Interpretation: Normal bone mineral density. Narrative 01/18/2024 10:15 AM EDT Referred By: SAYRA BARNETT Indications: Osteoporosis Scanner: [employer] with serial# of [id number] located at [facility] Bone Density Scan (DXA) 01/18/24 Details of [...] -2.5), or Osteoporosis (T-score <= -2.5). At [facility], T-scores are compared to peak bone density [...] Referred By: SAYRA BARNETT Indications: Osteoporosis Scanner: [employer] with serial# of [id number] located at [facility] Bone Density Scan (DXA) 01/18/24 Details of [...] -2.5), or Osteoporosis (T-score <= -2.5). At [facility], T-scores are compared to peak bone density [...] Interpretation: Normal bone mineral density. us Sayra Barnett NP IMG BD BONE DENSITY DEXA Final R esult documented in this encounter Visit Diagnoses Diagnosis Other specified disorders of bone density and structure, other site- Primary Other specified disorders of bone density and structure, other site documented in this encounter Care Teams Canal Superintendent Relationship Specialty Start Date End Date Monika Carmona MD [address] [place] [address] [place] [phone] PCP - General 01/17/17 documented as of this encounter Additional Source Comments The information contained in this document represents components of the legal health record. It is not the complete legal health record.[facility]
--- OUTSIDE RECORDS SUMMARY | 2024-12-03 10:38 | XMS_ITS | Encounter Summary ---
Author Organization [facility] Address [address] [place] [address] Phone Care Team Providers Care Sports Agent Name Role Phone Monika Carmona MD Primary Care Provider Encounter Details Date Type Department Care Team (Latest Contact Info) Description 02/28/2017 Transcribe Orders [facility] [address] [place] [address] Sayra Barnett, INSURANCE CLAIMS PROCESSOR [address] [place] [phone] [email or web address] Right upper quadrant abdominal tenderness, rebound tenderness presence not specified (Primary Dx) Social History Tobacco Use Types Packs/Day Years Used Date Smoking Tobacco: Never Assessed Comments Unknown Sex and Gender Information Value Date Recorded Sex Assigned at Not on file Legal Sex Female 9:56 PM EDT Gender Identity Not on file Sexual Orientation Not on file documented as of this encounter Plan of Treatment Scheduled Orders Name Type Priority Associated Diagnoses Orde r Schedule Manual differential Lab Routine Right upper quadrant abdominal tenderness, rebound tenderness presence not specified Expected: 02/28/2017, Expires: 02/28/2018 documented as of this encounter Results * CBC and differential (02/28/2017 3:58 PM EST) WBC 7.98 3.40 - 11.20 K/uL [facility] RBC 4.50 3.80 - 4.80 M/uL [facility] HGB 13.0 12.0 - 15.0 g/dL [facility] HCT 39.9 36.0 - 46.0 % [facility] PLT 310 130 - 400 K/uL [facility] MCV 88.7 79.0 - 98.0 fL [facility] MCH 28.9 27.0 - 34.8 pg [facility] MCHC 32.6 31.5 - 36.0 g/dL [facility] RDW 14.1 10.8 - 14.6 % [facility] MPV 11.4 9.4 - 12.4 fl [facility] NRBC 0.00 /100 WBCs [facility] ABSOLUTE NRBC 0.00 K/uL [facility] DIFF METHOD Auto [facility] NEUTS 53.3 45.30 - 77.70 % [facility] LYMPHS 37.8 12.30 - 39.70 % [facility] MONOS 7.4 4.10 - 12.80 % [facility] EOS 1.0 0 - 7.2 % [facility] BASOS 0.4 0 - 2.80 % [facility] Granulocytes, immature (%) 0.1 0.0 - 0.9 % [facility] ABSOLUTE NEUTS 4.25 1.40 - 7.70 K/uL [facility] ABSOLUTE LYMPHS 3.02 0.60 - 3.20 K/uL [facility] ABSOLUTE MONOS 0.59 0.11 - 0.59 K/uL [facility] ABSOLUTE EOS 0.08 0.01 - 0.50 K/uL [facility] ABSOLUTE BASOS 0.03 0.00 - 0.08 K/uL [facility] Granulocytes, immature 0.01 0.00 - 0.05 K/uL [facility] Blood 02/28/2017 3:58 PM EST 02/28/2017 4:01 PM EST us Sayra Barnett NP LAB BLOOD ORDERABLES Final Resul t [facility] [address] [place] [address] * (ABNORMAL) Comprehensive metabolic panel (02/28/2017 3:58 PM EST) SODIUM 138 133 - 146 mmol/L [facility] POTASSIUM 3.8 3.3 - 5.1 mmol/L [facility] CHLORIDE 94(L) 96 - 108 mmol/L [facility] CO2 30 21 - 35 mmol/L [facility] BUN 22(H) 6 - 19 mg/dL [facility] CREATININE 0.60 0.5 - 1.5 mg/dL [facility] GLUCOSE 106(H) 70 - 99 mg/dL [facility] ALBUMIN 3.9 3.9 - 4.8 g/dL [facility] TOTAL PROTEIN 7.5 6.5 - 8.0 g/dL [facility] CALCIUM 8.8 8.4 - 10.3 mg/dL [facility] ALKALINE PHOSPHATASE 91 39 - 117 U/L [facility] TOTAL BILIRUBIN 0.3 0 - 1.2 mg/dL [facility] AST 31 0 - 37 U/L [facility] ALT 46(H) 0 - 40 U/L [facility] GLOBULIN 3.6 1 - 4.8 g/dL [facility] EGFR >60 >60 mL/min/1.7 3m2 [facility] Comment:Abnormal if <60. If patient is -Tanzanian, multiply the result by 1.21. ANION GAP 18 10 - 20 mmol/L [facility] Blood 02/28/2017 3:58 PM EST 02/28/2017 4:01 PM EST us Sayra Barnett INSURANCE CLAIMS PROCESSOR LAB BLOOD ORDERABLES Final Resul t [facility] [address] [place] [address] documented in this encounter Visit Diagnoses Diagnosis Right upper quadrant abdominal tenderness, rebound tenderness presence not specified- Primary documented in this encounter Care Teams Sports Agent Relationship Specialty Start Date End Date Monika Carmona MD [address] [place] [address] [place] [phone] PCP - General 01/17/17 documented as of this encounter Additional Source Comments The information contained in this document represents components of the legal health record. It is not the complete legal health record.[facility]
--- OUTSIDE RECORDS SUMMARY | 2024-12-03 10:38 | XMS_ITS | Encounter Summary ---
Author Organization [facility] Address [address] [place] [address] Phone Care Team Providers Care Law Firm Partner Name Role Phone Monika Carmona MD Primary Care Provider Encounter Details Date Type Department Care Team (Latest Contact Info) Description 11/16/2017 Transcribe Orders [facility] [place] [facility] [address] [place] [address] Sayra Barnett, HEAD SAWYER [address] [place] [phone] [email or web address] Localized edema (Primary Dx) Social History Tobacco Use Types [...] documented as of this encounter Results * Parvovirus B19 antibodies, IgG, IgM (11/16/2017 3:02 PM EDT) PARVO B19 IGG Positive Negative [facility] EPT LAB MED/PATH [address] DR CLAU Nice IGM Negative Negative [facility] LAB MED/PATH [address] DR OLGUIN B19 INTERP SEE NOTE [facility] Comment: (NOTE) Results suggest past infection. ADDITIONAL INFORMATION This test has been modified from the coffee blender's instructions. Its performance characteristics were determined by [facility] in a manner consistent with CLIA requirements. This test has not been cleared or approved by the U.S. Food and Drug Administration. Blood 11/16/2017 3:02 PM EDT 11/16/2017 3:07 PM EDT Sayra Barnett NP LAB BLOOD ORDERABLES Final Resul t Performing Organization Address [facility] Co de Phone Number [facility] [address] [place] [address] * (ABNORMAL) C-Reactive Protein (11/16/2017 3:02 PM EDT) Pathologist [facility] C REACTIVE PROTEIN 16.0(H) 0.0 - 4.0 mg/L [facility] Comment:New Reference Range and Measuring Units effective 08/16/17. Blood 11/16/2017 3:02 PM EDT 11/16/2017 3:06 PM EDT Sayra Barnett NP LAB BLOOD ORDERABLES Final Resul t Performing Organization Address [facility] Co de Phone Number [address] [address] * (ABNORMAL) Sedimentation rate (ESR) (11/16/2017 3:02 PM EDT) ESR 43(H) 0 - 30 mm/h [facility] Blood 11/16/2017 3:02 PM EDT 11/16/2017 3:06 PM EDT Sayra Barnett NP LAB BLOOD ORDERABLES Final Resul t Performing Organization Address [facility]/State/ZIP Co de Phone Number [facility] [address] [place] [address] * (ABNORMAL) CBC and differential (11/16/2017 3:02 PM EDT) WBC 9.81 3.40 - 11.20 K/uL [facility] RBC 4.49 3.80 - 4.80 M/uL [facility] HGB 12.6 12.0 - 15.0 g/dL [facility] HCT 39.6 36.0 - 46.0 % [facility] PLT 298 130 - 400 K/uL [facility] MCV 88.2 79.0 - 98.0 fL [facility] MCH 28.1 27.0 - 34.8 pg [facility] MCHC 31.8 31.5 - 36.0 g/dL [facility] RDW 14.2 10.8 - 14.6 % [facility] MPV 11.5 9.4 - 12.4 fl [facility] NRBC 0.00 /100 WBCs [facility] ABSOLUTE NRBC 0.00 K/uL [facility] DIFF METHOD Auto [facility] NEUTS 63.4 45.30 - 77.70 % [facility] LYMPHS 28.1 12.30 - 39.70 % [facility] MONOS 6.9 4.10 - 12.80 % [facility] EOS 1.0 0 - 7.2 % [facility] BASOS 0.3 0 - 2.80 % [facility] Granulocytes, immature (%) 0.3 0.0 - 0.9 % [facility] ABSOLUTE NEUTS 6.21 1.40 - 7.70 K/uL [facility] ABSOLUTE LYMPHS 2.76 0.60 - 3.20 K/uL [facility] ABSOLUTE MONOS 0.68(H) 0.11 - 0.59 K/uL [facility] ABSOLUTE EOS 0.10 0.01 - 0.50 K/uL [facility] ABSOLUTE BASOS 0.03 0.00 - 0.08 K/uL [facility] Granulocytes, immature 0.03 0.00 - 0.05 K/uL [facility] Blood 11/16/2017 3:02 PM EDT 11/16/2017 3:06 PM EDT us Sayra Barnett HEAD SAWYER LAB BLOOD ORDERABLES Final Resul t [facility] [address] [place] [address] documented in this encounter Visit Diagnoses Diagnosis Localized edema- Primary Edema documented in this encounter Care Teams Law Firm Partner Relationship Specialty Start Date End Date Monika Carmona MD [address] [place] [address] Dr Sainz [address] [place] [phone] PCP - General 01/17/17 documented as of this encounter Additional Source Comments The information contained in this document represents components of the legal health record. It is not the complete legal health record.[facility]
--- OUTSIDE RECORDS SUMMARY | 2024-12-03 10:38 | XMS_ITS | Encounter Summary ---
Author Organization [facility] Address [address] [place] [address] Phone Care Team Providers Care Marine Structural Designer Name Role Phone Monika Carmona MD Primary Care Provider Encounter Details Date Type Department Care Team (Late st Contact Info) Description 03/01/2017 Ancillary Orders Virtual Department [address] [place] [address] Sayra Barnett, ORNAMENTAL IRON WORKER [address] [place] [phone] [email or web address] Right upper quadrant abdominal tenderness with rebound tenderness Social History Tobacco Use Types Packs/Day Years [...] of this encounter Results * CT ABDOMEN/PELVIS WITHOUT CONTRAST (03/03/2017 2:43 PM EST) Anatomical Region Laterality Modality Abdomen, Pelvis Computed Tomogra phy 03/03/2017 2:44 PM EST Impressions 03/03/2017 2:50 PM EST No definitive explanation for right upper quadrant tenderness is noted. No nephrolithiasis or hydronephrosis is seen. TOTAL CTDIvol: 25.20 mGy S/S: Right upper quadrant tenderness with rebound POS - [id number] Narrative 03/03/2017 2:50 PM EST COMPARISON: CT abdomen pelvis 05/23/2014 TECHNIQUE: Unenhanced imaging is obtained from the dome of the liver to the symphysis pubis. Sagittal and coronal reformats generated. Automated exposure control utilized. FINDINGS: The lung bases are clear. No significant pleural fluid is seen. The visualized portions of the liver and spleen are relatively homogeneous. No focal findings concern are noted. The patient has had a prior cholecystectomy. No bile duct dilatation is seen. The pancreas appears normal. No adrenal masses are seen. What are likely small upper pole cysts are noted in the kidneys. No nephrolithiasis or hydronephrosis is seen. No periaortic lymphadenopathy is evident. The bowel pattern is non-specific. No bowel distention or displacement is seen. What I believe is the appendix appears normal. The terminal ileum is unremarkable. There are minor scattered diverticula noted in the colon without diverticulitis. No adnexal masses are seen. The uterus is midline in position. There are weyj-od-medxiwna degenerative changes in the thoracolumbar spine. These are stable. No acute compression fracture is seen. Procedure Note Nikita Brooks MD - 03/03/2017 COMPARISON: CT abdomen pelvis 05/23/2014 TECHNIQUE: Unenhanced imaging is obtained from the dome of the liver tothe symphysis pubis. Sagittal and coronal reformats generated. Automated exposure control utilized. FINDINGS: The lung bases are clear. No significant pleural fluid is seen. The visualized portions of the liver and spleen are relativelyhomogeneous. No focal findings concern are noted. The patient has had aprior cholecystectomy. No bile duct dilatation is seen. The pancreas appears normal. No adrenal masses are seen. What are likely small upper pole cysts are noted in the kidneys. Nonephrolithiasis or hydronephrosis is seen. No periaortic lymphadenopathy is evident. The bowel pattern is non-specific. No bowel distention or displacement isseen. What I believe is the appendix appears normal. The terminal ileum isunremarkable. There are minor scattered diverticula noted in the colonwithout diverticulitis. No adnexal masses are seen. The uterus is midline in position. There are hhqr-eh-lbxuhcck degenerative changes in the thoracolumbarspine. These are stable. No acute compression fracture is seen. IMPRESSION: No definitive explanation for right upper quadrant tenderness is noted. Nonephrolithiasis or hydronephrosis is seen. TOTAL CTDIvol: 25.20 mGy S/S: Right upper quadrant tenderness with rebound POS - [id number] Sayra Barnett NP IMG CT ABD/PELVIS Final Result documented in this encounter Visit Diagnoses Diagnosis Right upper quadrant abdominal tenderness with rebound tenderness Right upper quadrant abdominal tenderness with rebound tenderness documented in this encounter Care Teams Marine Structural Designer Relationship Specialty Start Date End Date Monika Carmona MD [address] [place] [address] [place] [phone] PCP - General 01/17/17 documented as of this encounter Additional Source Comments The information contained in this document represents components of the legal health record. It is not the complete legal health record.[facility]
--- OUTSIDE RECORDS SUMMARY | 2024-12-03 10:38 | XMS_ITS | Encounter Summary ---
Author Organization [facility] Address [address] [place] [address] Phone Care Team Providers Care Logistician Name Role Phone Monika Carmona MD Primary Care Provider Encounter Details Date Type Department Care Team (Late st Contact Info) Description 04/14/2022 Ancillary Orders [employer], X-Ray - [facility] [address] [place] [address] Sayra Barnett, SANTY [address] [place] [phone] [email or web address] Left knee pain, unspecified chronicity Social History Tobacco Use Types Packs/Day Years [...] of this encounter Results * XR KNEE 1-2 VIEWS (BILATERAL) (04/14/2022 12:52 PM EST) Anatomical Region Laterality Modality Knee Bilateral, Knee Right, Knee Left Computed Radiography 04/15/2022 11:0 7 AM EST Impressions 04/15/2022 11:10 AM EST Chronic bilateral patellar enthesopathy and mild medial compartment narrowing without acute bony abnormality or significant progressive arthritic change suggested. Narrative 04/15/2022 11:10 AM EST XR KNEE 1-2 VIEWS (BILATERAL) COMPARISON: 05/01/2013 and 04/11/2019 FINDINGS: Left Knee: Weightbearing AP and lateral views reveal no fracture, subluxation, or other acute bony abnormality. Stable mild narrowing of the medial compartment. Chronic upper and lower pole patellar spurring at the quadriceps and infrapatellar insertion points. No gross suprapatellar effusion or opaque loose body. Right Knee: No fracture, subluxation, or other acute bony abnormality. Mild stable narrowing of the medial compartment. Stable upper pole patellar spurring at the quadriceps tendon insertion point. No gross suprapatellar effusion or opaque loose joint body. Procedure Note Maynor Matamoros MD - 04/15/2022 XR KNEE 1-2 VIEWS (BILATERAL) COMPARISON: 05/01/2013 and 04/11/2019 FINDINGS: Left Knee: Weightbearing AP and lateral views reveal no fracture,subluxation, or other acute bony abnormality. Stable mild narrowing of themedial compartment. Chronic upper and lower pole patellar spurring at thequadriceps and infrapatellar insertion points. No gross suprapatellareffusion or opaque loose body. Right Knee: No fracture, subluxation, or other acute bony abnormality.Mild stable narrowing of the medial compartment. Stable upper polepatellar spurring at the quadriceps tendon insertion point. No grosssuprapatellar effusion or opaque loose joint body. IMPRESSION: Chronic bilateral patellar enthesopathy and mild medial compartmentnarrowing without acute bony abnormality or significant progressivearthritic change suggested. us Sayra Barnett ASSISTANT HOUSEKEEPING MANAGER IMG XR LOWER EXTREMITY Final Res ult documented in this encounter Visit Diagnoses Diagnosis Left knee pain, unspecified chronicity Left knee pain, unspecified chronicity documented in this encounter Care Teams Logistician Relationship Specialty Start Date End Date Monika Carmona MD [address] [place] [phone] PCP - General 01/17/17 documented as of this encounter Additional Source Comments The information contained in this document represents components of the legal health record. It is not the complete legal health record.[facility]
--- OUTSIDE RECORDS SUMMARY | 2024-12-03 10:38 | XMS_ITS | Encounter Summary ---
Author Organization [facility] Address [address] [place] [address] Phone Care Team Providers Care Bee Tender Name Role Phone Monika Carmona MD Primary Care Provider Encounter Details Date Type Department Care Team (Late st Contact Info) Description 09/05/2017 Ancillary Orders [facility] External Provider Virtual Department [address] [place] [address] Monika Carmona MD [address] [place] [address] [place] [phone] Breast screening Social History Tobacco Use Types [...] documented as of this encounter Results * BI MAMMOGRAM SCREENING WITH TOMOSYNTHESIS WITH [...] There are scattered fibroglandular densities. POS - [id number] Narrative 03/07/2018 4:15 PM EST STUDY: Bilateral [...] There are scattered fibroglandular densities. POS - [id number] Monika Carmona MD IMG MG EXAMS Final Result documented in this encounter Visit Diagnoses Diagnosis Breast screening Breast screening, unspecified Breast screening Breast screening, unspecified documented in this encounter Care Teams Bee Tender Relationship Specialty Start Date End Date Monika Carmona MD [address] [place] [address] [place] [phone] PCP - General 01/17/17 documented as of this encounter Additional Source Comments The information contained in this document represents components of the legal health record. It is not the complete legal health record.[facility]
--- OUTSIDE RECORDS SUMMARY | 2024-12-03 10:38 | XMS_ITS | Encounter Summary ---
Author Organization [facility] Address [address] [place] [address] Phone Care Team Providers Care Glass Maker Name Role Phone Monika Carmona MD Primary Care Provider Encounter Details Date Type Department Care Team (Late st Contact Info) Description 10/29/2018 Ancillary Orders Virtual Department [address] [place] [address] Rebeca Muhammad NP [address] [place] [address] [email or web address] Lower abdominal pain Social History Tobacco Use Types Packs/Day Years [...] documented as of this encounter Results * US PELVIS TRANSABDOMINAL PLUS TRANSVAGINAL (10/30/2018 9:42 AM EDT) Anatomical Region Laterality Modality Pelvis, Uterus/Adnexa Ultrasound 10/30/2018 9:57 AM EDT Impressions 10/30/2018 10:08 AM EDT Thickened endometrial echo complex with cystic changes. Gynecological consult recommended. POS - [id number] Narrative 10/30/2018 10:08 AM EDT EXAM: US PELVIS TRANSABDOMINAL PLUS TRANSVAGINAL COMPARISON: Abdominal/pelvis CT on December 28, 2017 HISTORY: Lower abdominal pain FINDINGS: UTERUS: The uterus is anteflexed and midline, measures 7.8 cm x 4.2 cm x 5.3 cm, and demonstrates homogeneous myometrial echotexture. The endometrial echocomplex is thickened (measures 1.0 cm in thickness) with cystic changes. RIGHT OVARY: 2.0 cm x 1.5 cm x 2.1 cm, volume of 3.3 cm3. Grossly unremarkable. Vascular flow is demonstrated with color Doppler.. LEFT OVARY: 2.1 cm x 1.2 cm x 1.4 cm, volume of 1.8 cm3. Grossly unremarkable. Vascular flow is demonstrated with color Doppler.. PELVIS: No free fluid. Procedure Note Karol Washburn MD - 10/30/2018 EXAM: US PELVIS TRANSABDOMINAL PLUS TRANSVAGINAL COMPARISON: Abdominal/pelvis CT on December 28, 2017 HISTORY: Lower abdominal pain FINDINGS: UTERUS: The uterus is anteflexed and midline, measures 7.8 cm x 4.2 cm x5.3 cm, and demonstrates homogeneous myometrial echotexture. Theendometrial echocomplex is thickened (measures 1.0 cm in thickness) withcystic changes. RIGHT OVARY: 2.0 cm x 1.5 cm x 2.1 cm, volume of 3.3 cm3. Grosslyunremarkable. Vascular flow is demonstrated with color Doppler.. LEFT OVARY: 2.1 cm x 1.2 cm x 1.4 cm, volume of 1.8 cm3. Grosslyunremarkable. Vascular flow is demonstrated with color Doppler.. PELVIS: No free fluid. IMPRESSION: Thickened endometrial echo complex with cystic changes. Gynecologicalconsult recommended. POS - [id number] us Rebeca Muhammad NP IMG US PELVIS Final Resul t * US Abdomen Complete (10/30/2018 9:39 AM EDT) Anatomical Region Laterality Modality Abdomen Ultrasound 10/30/2018 10:1 0 AM EDT Addenda Addendum by Karol Washburn MD on 11/16/2018 9:19 AM EDT EXAM: US ABDOMEN COMPLETE COMPARISON: Abdominal/pelvis CT on December 28, 2017. HISTORY: Lower abdominal pain TECHNIQUE: Ultrasound examination of the abdomen was performed and multiple static images obtained. FINDINGS: LIVER: Limited evaluation according to the technologist notes. The visualized portions shows increased echotexture. BILIARY: Status post cholecystectomy. Common bile duct measures 0.6 cm. PANCREAS: Obscured by the overlying gas. SPLEEN: The spleen measures 10.1 cm in sagittal dimension. Grossly unremarkable. KIDNEYS: The right kidney measures 12.5 cm in sagittal dimension. No hydronephrosis. No ultrasound evidence for nephrolithiasis. There is a 1.9 cm cyst in the lower pole and 1.1 cm cyst in the upper pole. The left kidney measures >> 12.7 << cm in sagittal dimension. No hydronephrosis. A 0.4 cm echogenic focus identified in the interpolar region. There is a cyst measuring 1.6 cm at the junction of the lower pole/interpolar region of the kidney and 0.6 cm cyst in the interpolar region. MIDLINE VASCULATURE: The visualized portions of the IVC appears unremarkable. Aorta could not be well seen due to overlying gas. IMPRESSION: 1. Bilateral renal cysts. 2. Probable nonobstructing stone in the left kidney measures 0.4 cm. POS - [id number] Edited by: Valentina Baker on 11/14/2018 7:02 PM Impressions 10/30/2018 10:16 AM EDT 1. Bilateral renal cysts. 2. Probable nonobstructing stone in the left kidney measures 0.4 cm. POS - [id number] Narrative 10/30/2018 10:16 AM EDT EXAM: US ABDOMEN COMPLETE COMPARISON: Abdominal/pelvis CT on December 28, 2017. HISTORY: Lower abdominal pain TECHNIQUE: Ultrasound examination of the abdomen was performed and multiple static images obtained. FINDINGS: LIVER: Limited evaluation according to the technologist notes. The visualized portions shows increased echotexture. BILIARY: Status post cholecystectomy. Common bile duct measures 0.6 cm. PANCREAS: Obscured by the overlying gas. SPLEEN: The spleen measures 10.1 cm in sagittal dimension. Grossly unremarkable. KIDNEYS: The right kidney measures 12.5 cm in sagittal dimension. No hydronephrosis.. No ultrasound evidence for nephrolithiasis. There is a 1.9 cm cyst in the lower pole and 1.1 cm cyst in the upper pole. The left kidney measures cm in sagittal dimension. No hydronephrosis.. A 0.4 cm echogenic focus identified in the interpolar region. There is a cyst measuring 1.6 cm at the junction of the lower pole/interpolar region of the kidney and 0.6 cm cyst in the interpolar region. MIDLINE VASCULATURE: The visualized portions of the IVC appears unremarkable. Aorta could not be well seen due to overlying gas. Procedure Note Karol Washburn MD - 10/30/2018 EXAM: US ABDOMEN COMPLETE COMPARISON: Abdominal/pelvis CT on December 28, 2017. HISTORY: Lower abdominal pain TECHNIQUE: Ultrasound examination of the abdomen was performed andmultiple static images obtained. FINDINGS: LIVER: Limited evaluation according to the technologist notes. Thevisualized portions shows increased echotexture. BILIARY: Status post cholecystectomy. Common bile duct measures 0.6 cm. PANCREAS: Obscured by the overlying gas. SPLEEN: The spleen measures 10.1 cm in sagittal dimension. Grosslyunremarkable. KIDNEYS: The right kidney measures 12.5 cm in sagittal dimension. Nohydronephrosis.. No ultrasound evidence for nephrolithiasis. There is a1.9 cm cyst in the lower pole and 1.1 cm cyst in the upper pole. The left kidney measures cm in sagittal dimension. No hydronephrosis..A 0.4 cm echogenic focus identified in the interpolar region. There is acyst measuring 1.6 cm at the junction of the lower pole/interpolar regionof the kidney and 0.6 cm cyst in the interpolar region. MIDLINE VASCULATURE: The visualized portions of the IVC appearsunremarkable. Aorta could not be well seen due to overlying gas. IMPRESSION: 1. Bilateral renal cysts. 2. Probable nonobstructing stone in the left kidney measures 0.4 cm. POS - [id number] us Rebecamariah Brown Jb TEMPER MILL ROLLER IMG US ABDOMEN Edited Resu lt - Final documented in this encounter Visit Diagnoses Diagnosis Lower abdominal pain Abdominal pain, other specified site Lower abdominal pain Abdominal pain, other specified site Lower abdominal pain Abdominal pain, other specified site documented in this encounter Care Teams Glass Maker Relationship Specialty Start Date End Date Monika Carmona MD [address] [place], [place] [phone] PCP - General 01/17/17 documented as of this encounter Additional Source Comments The information contained in this document represents components of the legal health record. It is not the complete legal health record.[facility]
--- OUTSIDE RECORDS SUMMARY | 2024-12-03 10:38 | XMS_ITS | Encounter Summary ---
Author Organization [facility] Address [address] [place] [address] Phone Care Team Providers Care Vice President Of Operations Name Role Phone Monika Carmona MD Primary Care Provider Encounter Details Date Type Department Care Team (Latest Contact Info) Description 04/21/2017 Transcribe Orders [facility] [address] [place] [address] Katey Gregorio PA [address] [place] [address] Blood loss anemia (Primary Dx); Dyspepsia due to dysmotility Social History Tobacco Use Types Packs/Day Years Used Date Smoking Tobacco: Never Assessed Comments Unknown Sex and Gender Information Value Date Recorded Sex Assigned at Not on file Legal Sex Female 9:56 PM EDT Gender Identity Not on file Sexual Orientation Not on file documented as of this encounter Plan of Treatment Not on file documented as of this encounter Procedures Procedure Name Priority Date/Time Associated Diagnosis Comments IRON AND IRON BINDING CAPACITY Routine 04/21/2017 1:47 PM EST Blood loss anemia Dyspepsia due to dysmotility CBC AND DIFFERENTIAL Routine 04/21/2017 1:47 PM EST Blood loss anemia Dyspepsia due to dysmotility FERRITIN Routine 04/21/2017 1:47 PM EST Blood loss anemia Dyspepsia due to dysmotility documented in this encounter Results * (ABNORMAL) Iron and iron binding capacity (04/21/2017 1:47 PM EST) IRON 50 30 - 160 ug/dL [facility] IRON BINDING CAPACITY 355 228 - 428 ug/dL [facility] TRANSFERRIN SATURAT. 14(L) 15 - 50 % [facility] Blood 04/21/2017 1:47 PM EST 04/21/2017 1:51 PM EST Katey VARGAS LAB BLOOD ORDERABLES Final Result Performing Organization Address City/[facility]/ZIP Co de Phone Number [address] [phone] * Ferritin (04/21/2017 1:47 PM EST) Pathologist [facility] FERRITIN 73 13 - 150 ug/L [facility] Blood 04/21/2017 1:47 PM EST 04/21/2017 1:51 PM EST Katey VARGAS LAB BLOOD ORDERABLES Final Result Performing Organization Address City/[facility] Co de Phone Number [address] [address] * (ABNORMAL) CBC and differential (04/21/2017 1:47 PM EST) Pathologist [facility] WBC 8.25 3.40 - 11.20 K/uL [facility] RBC 4.54 3.80 - 4.80 M/uL [facility] HGB 12.8 12.0 - 15.0 g/dL [facility] HCT 41.4 36.0 - 46.0 % [facility] PLT 315 130 - 400 K/uL [facility] MCV 91.2 79.0 - 98.0 fL [facility] MCH 28.2 27.0 - 34.8 pg [facility] MCHC 30.9(L) 31.5 - 36.0 g/dL [facility] RDW 14.1 10.8 - 14.6 % [facility] MPV 11.5 9.4 - 12.4 fl [facility] NRBC 0.00 /100 WBCs [facility] ABSOLUTE NRBC 0.00 K/uL [facility] DIFF METHOD Auto [facility] NEUTS 51.9 45.30 - 77.70 % [facility] LYMPHS 38.5 12.30 - 39.70 % [facility] MONOS 7.8 4.10 - 12.80 % [facility] EOS 1.2 0 - 7.2 % [facility] BASOS 0.4 0 - 2.80 % [facility] Granulocytes, immature (%) 0.2 0.0 - 0.9 % [facility] ABSOLUTE NEUTS 4.28 1.40 - 7.70 K/uL [facility] ABSOLUTE LYMPHS 3.18 0.60 - 3.20 K/uL [facility] ABSOLUTE MONOS 0.64(H) 0.11 - 0.59 K/uL [facility] ABSOLUTE EOS 0.10 0.01 - 0.50 K/uL [facility] ABSOLUTE BASOS 0.03 0.00 - 0.08 K/uL [facility] Granulocytes, immature 0.02 0.00 - 0.05 K/uL [facility] Blood 04/21/2017 1:47 PM EST 04/21/2017 1:51 PM EST us Katey VARGAS LAB BLOOD ORDERABLES Final Result Performing Organization Address City/State/[facility] Co de Phone Number [address] [phone] documented in this encounter Visit Diagnoses Diagnosis Blood loss anemia- Primary Acute posthemorrhagic anemia Dyspepsia due to dysmotility documented in this encounter Care Teams Vice President Of Operations Relationship Specialty Start Date End Date Monika Carmona MD [address] [place] [address] [place] [phone] PCP - General 01/17/17 documented as of this encounter Additional Source Comments The information contained in this document represents components of the legal health record. It is not the complete legal health record.[facility]
--- OUTSIDE RECORDS SUMMARY | 2024-12-03 10:38 | XMS_ITS | Encounter Summary ---
Author Organization [facility] Address [address] [place] [address] Phone Care Team Providers Care Preflight Mechanic Name Role Phone Monika Carmona MD Primary Care Provider Encounter Details Date Type Department Care Team (Late st Contact Info) Description 04/28/2017 Procedure Pass [facility] Endoscopy Admitting Dept Virtual Department [address] [place] [address] Social History Tobacco Use Types Packs/Day Years [...] on filedocumented in this encounter Care Teams Preflight Mechanic Relationship Specialty Start Date End Date Monika Carmona MD [address] [place] [address] [place] [phone] PCP - General 01/17/17 documented as of this encounter Additional Source Comments The information contained in this document represents components of the legal health record. It is not the complete legal health record.[facility]
--- OUTSIDE RECORDS SUMMARY | 2024-12-03 10:38 | XMS_ITS | Clinical Summary ---
Author Organization [facility] Address [address] [place] [address] Phone Care Team Providers Care Communications Tower Climber Name Role Phone Physician, No Pcp Primary Care Provider Unavaila ble Allergies No known active allergies Social History Tobacco Use Types Packs/Day Years Used Date Smoking Tobacco: Never Assessed Comments Unknown Sex and Gender Information Value Date Recorded Sex Assigned at Not on file Legal Sex Female 4:29 AM EST Gender Identity Not on file Sexual Orientation Not on file Last Filed Vital Signs Vital Sign Reading Time Taken Comments Blood Pressure 116/52 04/26/2024 1:50 AM EST Pulse 101 04/26/2024 1:50 AM EST Temperature 37.8 C (100 F) 04/26/2024 1:50 AM EST Respiratory Rate 20 04/26/2024 1:50 AM EST Oxygen Saturation 94% 04/26/2024 1:50 AM EST Inhaled Oxygen Concentration - - Weight 122 kg (269 lb) 04/25/2024 7:10 PM EST Height 170.2 cm (5' 7 ) 04/25/2024 7:10 PM EST Body Mass Index 42.13 04/25/2024 7:10 PM EST Plan of Treatment Health Maintenance Due Date Last Done Comments DTaP,Tdap,and Td Vaccines (1 - Tdap) 1973 Pneumococcal Vaccine: 50+ Ye ars (1 of 1 - PCV) 2004 Zoster Vaccines (1 of 2) 2004 RSV Immunization Adult Patie nts (1 - Risk 60-74 years 1-dose series) 2014 Breast Cancer Screening 03/07/2020 03/07/2018 Depression Screening 04/03/2024 Colorectal Cancer Screening: Colonoscopy 04/26/2024 Falls Risk Assessment 04/26/2024 Hepatitis C Screening 04/26/2024 Medicare Annual Wellness Visit 04/26/2024 Social Influencers of Health Screening 04/26/2024 COVID-19 Vaccine ( - 2023-2 5 season) 2024 Influenza Vaccine (#1) 2024 Osteoporosis Screening (Bone Density Screening) 01/17/2034 01/18/2024 HIB Vaccines Aged Out No longer eligi ble based on patient's age to complete this topic HPV Vaccines Aged Out No longer eligi ble based on patient's age to complete this topic Hepatitis A Vaccines Aged Out No long er eligible based on patient's age to complete this topic Hepatitis B Vaccines Aged Out No long er eligible based on patient's age to complete this topic IPV Vaccines Aged Out No longer eligi ble based on patient's age to complete this topic MMR Vaccines Aged Out No longer eligi ble based on patient's age to complete this topic Meningococcal ACWY Vaccine Aged Out N o longer eligible based on patient's age to complete this topic Meningococcal B Vaccine Aged Out No l onger eligible based on patient's age to complete this topic RSV Immunization Patients Un nicole 20 months Aged Out No longer eligible b ased on patient's age to complete this topic Varicella Vaccines Aged Out No longer eligible based on patient's age to complete this topic [place] [phone] Care Teams Communications Tower Climber Relationship Specialty Start Date End Date Physician, No Pcp PCP - General 04/26/24
--- OUTSIDE RECORDS SUMMARY | 2024-12-03 10:38 | XMS_ITS | Encounter Summary ---
Author Organization [facility] Address [address] [place] [address] Phone Care Team Providers Care Regional Intermodal Truck Driver Name Role Phone Monika Carmona MD Primary Care Provider Encounter Details Date Type Department Care Team (Late st Contact Info) Description 03/01/2017 Procedure Pass [facility], Ct Scan - [facility] [address] [place] [address] Social History Tobacco Use Types Packs/Day Years [...] on filedocumented in this encounter Care Teams Regional Intermodal Truck Driver Relationship Specialty Start Date End Date Monika Carmona MD [address] [place] [address] [place] [phone] PCP - General 01/17/17 documented as of this encounter Additional Source Comments The information contained in this document represents components of the legal health record. It is not the complete legal health record.[facility]
[2024-12-03 10:56] LABS: MANUAL DIFF FLAG NO
[2024-12-03 11:04] LABS: Hematocrit 31.9 % (37.0-47.0); Hemoglobin 9.6 g/dl (12.0-16.0); Imm Gran Abs Auto 0.02 X10*3/uL (0.00-0.03); Imm Gran Pct Auto 0.3 % (0.0-0.4); Lymphocytes Absolute Auto 2.2 X10*3/uL (1.2-4.9); Mean Corpuscular HGB Conc 30.1 g/dl (31.0-35.0); Mean Corpuscular Hemoglobin 24.6 pg (27.0-33.0); Mean Corpuscular Volume 81.8 fL (80.0-98.0); NRBC Abs Auto 0.000 X10*3/uL (0.0-0.012); NRBC Pct Auto 0.0 /100WBC (0.0-0.2); Platelet Count 305 X10*3/uL (160-400); Red Blood Count 3.90 X10*6/uL (4.20-5.50); White Blood Count 7.1 X10*3/uL (4.8-10.8)
[2024-12-03 11:18] LABS: Hemoglobin A1C 148.8693 umol/L; Total Hemoglobin (HGBA1C) 2593.4078 umol/L
[2024-12-03 11:43] LABS: Thyroid Stimulating Hormone 2.64 uIU/mL (0.32-4.0)
[2024-12-03 11:44] LABS: Anion Gap 12 (12-20)
[2024-12-03 11:47] LABS: Albumin Level 3.7 g/dL (3.5-5.0); Calcium 8.3 mg/dL (8.4-10.2); Carbon Dioxide 31 mmol/L (22-29); Chloride 102 mmol/L (96-108); Potassium 3.6 mmol/L (3.3-5.1); Sodium 141 mmol/L (135-145); Total Protein 7.1 g/dL (6.5-8.0)
[2024-12-03 13:24] LABS: Alanine Aminotransferase 28 U/L (0-31); Alkaline Phosphatase 85 U/L (39-117); Aspartate Amino Transferase 35 U/L (5-31); Blood Urea Nitrogen 16 mg/dL (9-16); Estimated Glomerular Filt Rate > 60
[2024-12-03 13:25] LABS: Microalbum/Creatinine Ratio Ur 170.0 ug/mg cr (<30)
== END 2024-12-03 09:34 | disposition home or self-care (01) ==
LOC: HO.10HDL 09:33
PROVIDERS: Visit Provider Internal Medicine
DX: E11.9 Type 2 diabetes mellitus without complications (principal); E66.01 Morbid (severe) obesity due to excess calories; F32.9 Major depressive disorder, single episode, unspecified; G47.33 Obstructive sleep apnea (adult) (pediatric); I10 Essential (primary) hypertension; R09.02 Hypoxemia
CPT/HCPCS: 36415; 80053; 82043; 82570; 83036; 84443; 85025

== ENCOUNTER 2025-02-19 13:54 | Outpatient (REF) | payer OTHER, SELFPAY ==
--- NOTE | ~2025-02-19 | MM_ITS ---
EXAMINATION: MM SCREENING DIGITAL BREAST TOMOSYNTHESIS, BILATERAL CLINICAL INFORMATION: Screening. Asymptomatic. COMPARISON: Mammography: Comparison is made with available priors TECHNIQUE: Digital breast mammography with tomosynthesis is performed in both the craniocaudal and mediolateral oblique views along with computer-aided detection (CAD). FINDINGS: There are scattered areas of fibroglandular density. There are no significant masses, abnormal calcifications, or other abnormalities. MM/MM tomosynthesis screening BI IMPRESSION: No mammographic evidence of malignancy. ASSESSMENT: BI-RADS Category 1: Negative RECOMMENDATION: Routine annual mammography screening. 1 year F/U This examination should not preclude the clinical evaluation of a suspicious palpable abnormality. This patient's information was entered into a reminder system with a target due date for their next mammogram. Electronically signed by: Augusta Garcia DO 02/20/2025 10:57 AM JANINE
--- OUTSIDE RECORDS SUMMARY | 2025-02-20 02:02 | XMS_ITS | Encounter Summary ---
Author Organization [facility] Address [address] [place] [address] Phone Care Team Providers Care Relays Draftsperson Name Role Phone Monika Carmona MD Primary Care Provider Encounter Details Date Type Department Care Team (Late st Contact Info) Description 12/11/2017 Ancillary Orders Virtual Department [address] [place] [address] Katey Gregorio PA [address] [place] [address] Pain of upper abdomen Social History Tobacco [...] diverticulosis. TOTAL CTDIvol: 24.7 mGy POS - [id number] Narrative 12/28/2017 1:25 PM EDT EXAM: CT [...] diverticulosis. TOTAL CTDIvol: 24.7 mGy POS - [id number] Katey VARGAS IMG CT ABD/PELVIS Final Res ult documented in this encounter Visit Diagnoses Diagnosis Pain of upper abdomen Pain of upper abdomen documented in this encounter Care Teams Relays Draftsperson Relationship Specialty Start Date End Date Monika Carmona MD [address] [place] [address] [place] [phone] PCP - General 01/17/17 documented as of this encounter Additional Source Comments The information contained in this document represents components of the legal health record. It is not the complete legal health record.[facility]
--- OUTSIDE RECORDS SUMMARY | 2025-02-20 02:02 | XMS_ITS | Encounter Summary ---
Author Organization [facility] Address [address] [place] [address] Phone Care Team Providers Care Group Burner Machine Name Role Phone Monika Carmona MD Primary Care Provider Encounter Details Date Type Department Care Team (Latest Contact Info) Description 02/28/2017 Transcribe Orders [facility] Phleb Main [address] [place] [address] Sayra Barnett, MORTGAGE LOAN CLOSER [address] [place] [phone] [email or web address] Right upper quadrant abdominal tenderness, rebound tenderness [...] EST) WBC 7.98 3.40 - 11.20 K/uL [facility] RBC 4.50 3.80 - 4.80 M/uL [facility] HGB 13.0 12.0 - 15.0 g/dL [facility] HCT 39.9 36.0 - 46.0 % [facility] PLT 310 130 - 400 K/uL [facility] MCV 88.7 79.0 - 98.0 fL [facility] MCH 28.9 27.0 - 34.8 pg [facility] MCHC 32.6 31.5 - 36.0 g/dL [facility] RDW 14.1 10.8 - 14.6 % [facility] MPV 11.4 9.4 - 12.4 fl [facility] NRBC 0.00 /100 WBCs [facility] ABSOLUTE NRBC 0.00 K/uL [facility] DIFF METHOD Auto [facility] NEUTS 53.3 45.30 - 77.70 % [facility] LYMPHS 37.8 12.30 - 39.70 % [facility] MONOS 7.4 4.10 - 12.80 % [facility] EOS 1.0 0 - 7.2 % [facility] BASOS 0.4 0 - 2.80 % [facility] Granulocytes, immature (%) 0.1 0.0 - 0.9 % [facility] ABSOLUTE NEUTS 4.25 1.40 - 7.70 K/uL [facility] ABSOLUTE LYMPHS 3.02 0.60 - 3.20 K/uL [facility] ABSOLUTE MONOS 0.59 0.11 - 0.59 K/uL [facility] ABSOLUTE EOS 0.08 0.01 - 0.50 K/uL [facility] ABSOLUTE BASOS 0.03 0.00 - 0.08 K/uL [facility] Granulocytes, immature 0.01 0.00 - 0.05 K/uL [facility] Blood 02/28/2017 3:58 PM EST 02/28/2017 4:01 PM EST us Sayra Barnett NP LAB BLOOD BKR ORDERABLES Final R esult [facility] [address] [place], [place] [phone] * (ABNORMAL) Comprehensive metabolic panel (02/28/2017 3:58 PM EST) SODIUM 138 133 - 146 mmol/L [facility] POTASSIUM 3.8 3.3 - 5.1 mmol/L [facility] CHLORIDE 94(L) 96 - 108 mmol/L [facility] CO2 30 21 - 35 mmol/L [facility] BUN 22(H) 6 - 19 mg/dL [facility] CREATININE 0.60 0.5 - 1.5 mg/dL [facility] GLUCOSE 106(H) 70 - 99 mg/dL [facility] ALBUMIN 3.9 3.9 - 4.8 g/dL [facility] TOTAL PROTEIN 7.5 6.5 - 8.0 g/dL [facility] CALCIUM 8.8 8.4 - 10.3 mg/dL [facility] ALKALINE PHOSPHATASE 91 39 - 117 U/L [facility] TOTAL BILIRUBIN 0.3 0 - 1.2 mg/dL [facility] AST 31 0 - 37 U/L [facility] ALT 46(H) 0 - 40 U/L [facility] GLOBULIN 3.6 1 - 4.8 g/dL [facility] EGFR >60 >60 mL/min/1.7 3m2 [facility] Comment:Abnormal if <60. If patient is -Lao, multiply the result by 1.21. ANION GAP 18 10 - 20 mmol/L [facility] Blood 02/28/2017 3:58 PM EST 02/28/2017 4:01 PM EST us Sayra Barnett MORTGAGE LOAN CLOSER LAB BLOOD BKR ORDERABLES Final R esult [facility] [address] [place] [address] documented in this encounter Visit Diagnoses Diagnosis Right upper quadrant abdominal tenderness, rebound tenderness presence not specified- Primary documented in this encounter Care Teams Group Burner Machine Relationship Specialty Start Date End Date Monika Carmona MD [address] [place] [address] [place] [phone] PCP - General 01/17/17 documented as of this encounter Additional Source Comments The information contained in this document represents components of the legal health record. It is not the complete legal health record.[facility]
--- OUTSIDE RECORDS SUMMARY | 2025-02-20 02:02 | XMS_ITS | Encounter Summary ---
Author Organization [facility] Address [address] [place] [address] Phone Care Team Providers Care Sealing Machine Operator Name Role Phone Monika Carmona MD Primary Care Provider Encounter Details Date Type Department Care Team (Late st Contact Info) Description 09/05/2017 Ancillary Orders [facility] External Provider Virtual Department [address] [place] [address] Monika Carmona MD [address] [place] [address] [place] [phone] Breast screening Social History Tobacco Use Types [...] There are scattered fibroglandular densities. POS - [id number] Narrative 03/07/2018 4:15 PM EST STUDY: Bilateral [...] There are scattered fibroglandular densities. POS - [id number] Monika Carmona MD IMG MG EXAMS Final Result documented in this encounter Visit Diagnoses Diagnosis Breast screening Breast screening, unspecified Breast screening Breast screening, unspecified documented in this encounter Care Teams Sealing Machine Operator Relationship Specialty Start Date End Date Monika Carmona MD [address] [place] [address] [place] [phone] PCP - General 01/17/17 documented as of this encounter Additional Source Comments The information contained in this document represents components of the legal health record. It is not the complete legal health record.[facility]
--- OUTSIDE RECORDS SUMMARY | 2025-02-20 02:02 | XMS_ITS | Encounter Summary ---
Author Organization [facility] Address [address] [place] [address] Phone Care Team Providers Care Professor Of Chemical Engineering Name Role Phone Monika Carmona MD Primary Care Provider Encounter Details Date Type Department Care Team (Late st Contact Info) Description 04/28/2017 Procedure Pass [facility] Endoscopy Admitting Dept Virtual Department [address] [place] [address] Social History Tobacco Use Types Packs/Day Years [...] on filedocumented in this encounter Care Teams Professor Of Chemical Engineering Relationship Specialty Start Date End Date Monika Carmona MD [address] [place] [address] [place] [phone] PCP - General 01/17/17 documented as of this encounter Additional Source Comments The information contained in this document represents components of the legal health record. It is not the complete legal health record.[facility]
--- OUTSIDE RECORDS SUMMARY | 2025-02-20 02:02 | XMS_ITS | Encounter Summary ---
Author Organization [facility] Address [address] [place] [address] Phone Care Team Providers Care Chaplain Resident Name Role Phone Monika Carmona MD Primary Care Provider Encounter Details Date Type Department Care Team (Latest Contact Info) Description 04/11/2019 Ancillary Orders [facility], X-Ray - [address] [address] Sayra Barnett, TRUCK DESPATCHER [address] [place] [phone] [email or web address] Bilateral primary osteoarthritis of knee Social History [...] 2014. POS - [id number] us Sayra Barnett TRUCK DESPATCHER IMG XR LOWER EXTREMITY Final Res ult documented in this encounter Visit Diagnoses Diagnosis Bilateral primary osteoarthritis of knee Bilateral primary osteoarthritis of knee documented in this encounter Care Teams Chaplain Resident Relationship Specialty Start Date End Date Monika Carmona MD [address] [place] [address] [place] [phone] PCP - General 01/17/17 documented as of this encounter Additional Source Comments The information contained in this document represents components of the legal health record. It is not the complete legal health record.[facility]
--- OUTSIDE RECORDS SUMMARY | 2025-02-20 02:02 | XMS_ITS | Encounter Summary ---
Author Organization [facility] Address [address] [place] [address] Phone Care Team Providers Care Turf Grower Name Role Phone Monika Carmona MD Primary Care Provider Encounter Details Date Type Department Care Team (Latest Contact Info) Description 04/21/2017 Transcribe Orders [facility] Phleb [place] [address] [place] [address] Katey Gregorio PA [address] [place] [address] Blood loss anemia (Primary Dx); Dyspepsia due [...] iron binding capacity (04/21/2017 1:47 PM EST) Pathologist [facility] IRON 50 30 - 160 ug/dL [facility] IRON BINDING CAPACITY 355 228 - 428 ug/dL [facility] TRANSFERRIN SATURAT. 14(L) 15 - 50 % [facility] Blood 04/21/2017 1:47 PM EST 04/21/2017 1:51 PM EST Katey VARGAS LAB BLOOD BKR ORDERABLES Fi nal Result Performing Organization Address City/[facility]/ZIP Co de Phone Number [address] [address] * Ferritin (04/21/2017 1:47 PM EST) Pathologist [facility] FERRITIN 73 13 - 150 ug/L [facility] Blood 04/21/2017 1:47 PM EST 04/21/2017 1:51 PM EST Katey VARGAS LAB BLOOD BKR ORDERABLES Fi nal Result Performing Organization Address [facility] Co de Phone Number [address] [address] * (ABNORMAL) CBC and differential (04/21/2017 1:47 PM EST) Pathologist [facility] WBC 8.25 3.40 - 11.20 K/uL [facility] RBC 4.54 3.80 - 4.80 M/uL [facility] HGB 12.8 12.0 - 15.0 g/dL [facility] HCT 41.4 36.0 - 46.0 % [facility] PLT 315 130 - 400 K/uL [facility] MCV 91.2 79.0 - 98.0 fL [facility] MCH 28.2 27.0 - 34.8 pg [facility] MCHC 30.9(L) 31.5 - 36.0 g/dL [facility] RDW 14.1 10.8 - 14.6 % [facility] MPV 11.5 9.4 - 12.4 fl [facility] NRBC 0.00 /100 WBCs [facility] ABSOLUTE NRBC 0.00 K/uL [facility] DIFF METHOD Auto [facility] NEUTS 51.9 45.30 - 77.70 % [facility] LYMPHS 38.5 12.30 - 39.70 % [facility] MONOS 7.8 4.10 - 12.80 % [facility] EOS 1.2 0 - 7.2 % [facility] BASOS 0.4 0 - 2.80 % [facility] Granulocytes, immature (%) 0.2 0.0 - 0.9 % [facility] ABSOLUTE NEUTS 4.28 1.40 - 7.70 K/uL [facility] ABSOLUTE LYMPHS 3.18 0.60 - 3.20 K/uL [facility] ABSOLUTE MONOS 0.64(H) 0.11 - 0.59 K/uL [facility] ABSOLUTE EOS 0.10 0.01 - 0.50 K/uL [facility] ABSOLUTE BASOS 0.03 0.00 - 0.08 K/uL [facility] Granulocytes, immature 0.02 0.00 - 0.05 K/uL [facility] Blood 04/21/2017 1:47 PM EST 04/21/2017 1:51 PM EST us Katey VARGAS LAB BLOOD BKR ORDERABLES Fi nal Result [address] [address] documented in this encounter Visit Diagnoses Diagnosis Blood loss anemia- Primary Acute posthemorrhagic anemia Dyspepsia due to dysmotility documented in this encounter Care Teams Turf Grower Relationship Specialty Start Date End Date Monika Carmona MD [address] [place] [address] [place] [phone] PCP - General 01/17/17 documented as of this encounter Additional Source Comments The information contained in this document represents components of the legal health record. It is not the complete legal health record.[facility]
--- OUTSIDE RECORDS SUMMARY | 2025-02-20 02:02 | XMS_ITS | Encounter Summary ---
Author Organization [facility] Address [address] [place] [address] Phone Care Team Providers Care Radiology Supervisor Name Role Phone Monika Carmona MD Primary Care Provider Encounter Details Date Type Department Care Team (Late st Contact Info) Description 12/27/2018 Procedure Pass [facility] Endoscopy Admitting Dept Virtual Department [address] [place] [address] Social History Tobacco Use Types Packs/Day Years [...] on filedocumented in this encounter Care Teams Radiology Supervisor Relationship Specialty Start Date End Date Monika Carmona MD [address] [place] [address] [place] [phone] PCP - General 01/17/17 documented as of this encounter Additional Source Comments The information contained in this document represents components of the legal health record. It is not the complete legal health record.[facility]
--- OUTSIDE RECORDS SUMMARY | 2025-02-20 02:02 | XMS_ITS | Encounter Summary ---
Author Organization [facility] Address [address] [place] [address] Phone Care Team Providers Care Employee Wellness/Fitness Coordinator Name Role Phone Monika Carmona MD Primary Care Provider Encounter Details Date Type Department Care Team (Late st Contact Info) Description 04/14/2022 Ancillary Orders [facility], X-Ray - [facility] [address] [place] [address] Sayra Barnett, SANTY [address] [place] [phone] [email or web address] Left knee pain, unspecified chronicity Social History [...] significant progressivearthritic change suggested. us Sayra Barnett AWNING INSTALLER IMG XR LOWER EXTREMITY Final Res ult documented in this encounter Visit Diagnoses Diagnosis Left knee pain, unspecified chronicity Left knee pain, unspecified chronicity documented in this encounter Care Teams Employee Wellness/Fitness Coordinator Relationship Specialty Start Date End Date Monika Carmona MD [address] [place] [phone] PCP - General 01/17/17 documented as of this encounter Additional Source Comments The information contained in this document represents components of the legal health record. It is not the complete legal health record.[facility]
--- OUTSIDE RECORDS SUMMARY | 2025-02-20 02:02 | XMS_ITS | Encounter Summary ---
Author Organization [facility] Address [address] [place] [address] Phone Care Team Providers Care Executive Candidate Developer Name Role Phone Monika Carmona MD Primary Care Provider Encounter Details Date Type Department Care Team (Late st Contact Info) Description 03/01/2017 Ancillary Orders Virtual Department [address] [place] [address] Sayra Barnett, PODIATRIC FOOT AND ANKLE SPECIALIST [address] [place] [phone] [email or web address] upper quadrant abdominal tenderness with rebound [...] upper quadrant tenderness with rebound POS - [id number] Narrative 03/03/2017 2:50 PM EST COMPARISON: CT [...] uterus is midline in position. There are [id number] degenerative changes in the thoracolumbar spine. These [...] uterus is midline in position. There are [id number] degenerative changes in the thoracolumbarspine. These are stable. No acute compression fracture is seen. IMPRESSION: No definitive explanation for right upper quadrant tenderness is noted. Nonephrolithiasis or hydronephrosis is seen. TOTAL CTDIvol: 25.20 mGy S/S: Right upper quadrant tenderness with rebound POS - [id number] Sayra Barnett NP IMG CT ABD/PELVIS Final Result documented in this encounter Visit Diagnoses Diagnosis Right upper quadrant abdominal tenderness with rebound tenderness Right upper quadrant abdominal tenderness with rebound tenderness documented in this encounter Care Teams Executive Candidate Developer Relationship Specialty Start Date End Date Monika Carmona MD [address] [place] [address] [place] [phone] PCP - General 01/17/17 documented as of this encounter Additional Source Comments The information contained in this document represents components of the legal health record. It is not the complete legal health record.[facility]
--- OUTSIDE RECORDS SUMMARY | 2025-02-20 02:02 | XMS_ITS | Encounter Summary ---
Author Organization [facility] Address [address] [place] [address] Phone Care Team Providers Care Customs Appraiser Name Role Phone Monika Carmona MD Primary Care Provider Encounter Details Date Type Department Care Team (Latest Contact Info) Description 11/16/2017 Transcribe Orders [facility] [address] [address] Sayra Barnett, SCUTCHER TENDER [address] [place] [phone] [email or web address] Localized edema (Primary Dx) Social History Tobacco [...] antibodies, IgG, IgM (11/16/2017 3:02 PM EDT) CLAU B19 IGG Positive Negative [facility] EPT LAB MED/PATH [address] CLAU Nice IGM Negative Negative [facility] MED/PATH [address] DR OLGUIN B19 INTERP SEE NOTE [facility] Comment: (NOTE) Results suggest past infection. ADDITIONAL INFORMATION This test has been modified from the figure model's instructions. Its performance characteristics were determined by [facility] in a manner consistent with CLIA requirements. This test has not been cleared or approved by the U.S. Food and Drug Administration. Blood 11/16/2017 3:02 PM EDT 11/16/2017 3:07 PM EDT Sayra Barnett NP LAB BLOOD ORDERABLES Final Resul t Performing Organization Address City/[facility]/ZIP Co de Phone Number [facility] [address] [place] [address] * (ABNORMAL) C-Reactive Protein (11/16/2017 3:02 PM EDT) [facility] C REACTIVE PROTEIN 16.0(H) 0.0 - 4.0 mg/L [facility] Comment:New Reference Range and Measuring Units effective 08/16/17. Blood 11/16/2017 3:02 PM EDT 11/16/2017 3:06 PM EDT Sayra Barnett NP LAB BLOOD BKR ORDERABLES Final R esult Performing Organization Address City/[facility]/ZIP Co de Phone Number [facility] [address] [place] [address] * (ABNORMAL) Sedimentation rate (ESR) (11/16/2017 3:02 PM EDT) Pathologist [facility] ESR 43(H) 0 - 30 mm/h [facility] Blood 11/16/2017 3:02 PM EDT 11/16/2017 3:06 PM EDT Sayra Barnett NP LAB BLOOD BKR ORDERABLES Final R esult [facility] [address] [place] [address] * (ABNORMAL) CBC and differential (11/16/2017 3:02 PM EDT) WBC 9.81 3.40 - 11.20 K/uL [facility] RBC 4.49 3.80 - 4.80 M/uL [facility] HGB 12.6 12.0 - 15.0 g/dL [facility] HCT 39.6 36.0 - 46.0 % [facility] PLT 298 130 - 400 K/uL [facility] MCV 88.2 79.0 - 98.0 fL [facility] MCH 28.1 27.0 - 34.8 pg [facility] MCHC 31.8 31.5 - 36.0 g/dL [facility] RDW 14.2 10.8 - 14.6 % [facility] MPV 11.5 9.4 - 12.4 fl [facility] NRBC 0.00 /100 WBCs [facility] ABSOLUTE NRBC 0.00 K/uL [facility] DIFF METHOD Auto [facility] NEUTS 63.4 45.30 - 77.70 % [facility] LYMPHS 28.1 12.30 - 39.70 % [facility] MONOS 6.9 4.10 - 12.80 % [facility] EOS 1.0 0 - 7.2 % [facility] BASOS 0.3 0 - 2.80 % [facility] Granulocytes, immature (%) 0.3 0.0 - 0.9 % [facility] ABSOLUTE NEUTS 6.21 1.40 - 7.70 K/uL [facility] ABSOLUTE LYMPHS 2.76 0.60 - 3.20 K/uL [facility] ABSOLUTE MONOS 0.68(H) 0.11 - 0.59 K/uL [facility] ABSOLUTE EOS 0.10 0.01 - 0.50 K/uL [facility] ABSOLUTE BASOS 0.03 0.00 - 0.08 K/uL [facility] Granulocytes, immature 0.03 0.00 - 0.05 K/uL [facility] Blood 11/16/2017 3:02 PM EDT 11/16/2017 3:06 PM EDT us Sayra Barnett SCUTCHER TENDER LAB BLOOD BKR ORDERABLES Final R esult [facility] [address] [place] [address] documented in this encounter Visit Diagnoses Diagnosis Localized edema- Primary Edema documented in this encounter Care Teams Customs Appraiser Relationship Specialty Start Date End Date Monika Carmona MD [address] [place] [address] [place] [phone] PCP - General 01/17/17 documented as of this encounter Additional Source Comments The information contained in this document represents components of the legal health record. It is not the complete legal health record.[facility]
--- OUTSIDE RECORDS SUMMARY | 2025-02-20 02:02 | XMS_ITS | Encounter Summary ---
Author Organization [facility] Address [address] [place] [address] Phone Care Team Providers Care Tar Processing Technician Name Role Phone Monika Carmona MD Primary Care Provider Encounter Details Date Type Department Care Team (Late st Contact Info) Description 12/11/2017 Procedure [facility], Ct Scan - [facility] [address] [place] [address] Social History Tobacco Use Types Packs/Day Years [...] on filedocumented in this encounter Care Teams Tar Processing Technician Relationship Specialty Start Date End Date Monika Carmona MD [address] [place] [address] [place] [phone] PCP - General 01/17/17 documented as of this encounter Additional Source Comments The information contained in this document represents components of the legal health record. It is not the complete legal health record.[facility]
--- OUTSIDE RECORDS SUMMARY | 2025-02-20 02:02 | XMS_ITS | Encounter Summary ---
Author Organization [facility] Address [address] [place] [address] Phone Care Team Providers Care Product Introduction Manager Name Role Phone Monika Carmona MD Primary Care Provider Encounter Details Date Type Department Care Team (Late st Contact Info) Description 03/01/2017 Procedure [facility], Ct Scan - [facility] [address] [place] [address] Social History Tobacco Use Types Packs/Day Years [...] on filedocumented in this encounter Care Teams Product Introduction Manager Relationship Specialty Start Date End Date Monika Carmona MD [address] [place] [address] [place] [phone] PCP - General 01/17/17 documented as of this encounter Additional Source Comments The information contained in this document represents components of the legal health record. It is not the complete legal health record.[facility]
--- OUTSIDE RECORDS SUMMARY | 2025-02-20 02:02 | XMS_ITS | Encounter Summary ---
Author Organization [facility] Address [address] [place] [address] Phone Care Team Providers Care Telecom Specialist Name Role Phone Monika Carmona MD Primary Care Provider Encounter Details Date Type Department Care Team (Latest Contact Info) Description 10/19/2023 Transcribe Orders Virtual Department [address] [place] [address] Sayra Barnett, GLAZE WIPER [address] [place] [phone] [email or web address] Other specified disorders of bone density and [...] Referred By: SAYRA BARNETT Indications: Osteoporosis Scanner: [employer] A with serial# of [id number] located at [facility] Bone Density Scan (DXA) 01/18/24 Details of [...] -2.5), or Osteoporosis (T-score <= -2.5). At [facility], T-scores are compared to peak bone density [...] Referred By: SAYRA BARNETT Indications: Osteoporosis Scanner: [employer] A with serial# of [id number] located at [facility] Bone Density Scan (DXA) 01/18/24 Details of [...] -2.5), or Osteoporosis (T-score <= -2.5). At [facility], T-scores are compared to peak bone density [...] site documented in this encounter Care Teams Telecom Specialist Relationship Specialty Start Date End Date Monika Carmona MD [address] [place] [address] [place] [phone] PCP - General 01/17/17 documented as of this encounter Additional Source Comments The information contained in this document represents components of the legal health record. It is not the complete legal health record.[facility]
--- OUTSIDE RECORDS SUMMARY | 2025-02-20 02:03 | XMS_ITS | Encounter Summary ---
Author Organization [facility] Address [address] [place] [address] Phone Care Team Providers Care Service Dismantler Name Role Phone Monika Carmona MD Primary Care Provider Encounter Details Date Type Department Care Team (Late st Contact Info) Description 10/29/2018 Ancillary Orders Virtual Department [address] [place] [address] Rebeca Muhammad, KYLEE [address] [place] [address] [email or web address] Lower abdominal pain Social History Tobacco Use [...] cystic changes. Gynecological consult recommended. POS - [id number] Narrative 10/30/2018 10:08 AM EDT EXAM: US [...] with cystic changes. Gynecologicalconsult recommended. POS - [id number] us Rebeca Muhammad INDUSTRIAL ECONOMIST IMG US PELVIS Final Resu lt * US Abdomen Complete (10/30/2018 9:39 AM [...] left kidney measures 0.4 cm. POS - [id number] Edited by: Valentina Baker on 11/14/2018 7:02 PM Impressions 10/30/2018 10:16 AM EDT 1. Bilateral renal cysts. 2. Probable nonobstructing stone in the left kidney measures 0.4 cm. POS - [id number] Narrative 10/30/2018 10:16 AM EDT EXAM: US [...] left kidney measures 0.4 cm. POS - [id number] us Rebeca Muhammad INDUSTRIAL ECONOMIST IMG US ABDOMEN Edited Res ult - Final documented in this encounter Visit Diagnoses Diagnosis Lower abdominal pain Abdominal pain, other specified site Lower abdominal pain Abdominal pain, other specified site Lower abdominal pain Abdominal pain, other specified site documented in this encounter Care Teams Service Dismantler Relationship Specialty Start Date End Date Monika Carmona MD [address] [place] [place] [phone] PCP - General 01/17/17 documented as of this encounter Additional Source Comments The information contained in this document represents components of the legal health record. It is not the complete legal health record.[facility]
--- OUTSIDE RECORDS SUMMARY | 2025-02-20 02:03 | XMS_ITS | Clinical Summary ---
Author Organization [facility] Address [address] [place] [address] Phone Care Team Providers Care Semiconductor Wafer Inspector Name Role Phone Monika Carmona MD Primary [...] VACCINE (#1) 2024 COVID-19 VACCINE ( - 2024-2 6 season) 2024 COLONOSCOPY 12/27/2028 12/27/2018 COLORECTAL CANCER [...] AM EST Breast screening COMPREHENSIVE METABOLIC PANEL (CMP) Routine 02/28/2017 3:58 PM EST Right upper [...] Referred By: SAYRA BARNETT Indications: Osteoporosis Scanner: [employer] A with serial# of [id number] located at [facility] Bone Density Scan (DXA) 01/18/24 Details of [...] -2.5), or Osteoporosis (T-score <= -2.5). At [facility], T-scores are compared to peak bone density [...] Referred By: SAYRA BARNETT Indications: Osteoporosis Scanner: [employer] A with serial# of [id number] located at [facility] Bone Density Scan (DXA) 01/18/24 Details of [...] -2.5), or Osteoporosis (T-score <= -2.5). At [facility], T-scores are compared to peak bone density [...] bone mineral density. us Sayra Vergara Ericka RUBY ON RAILS CONSULTANT IMG BD BONE DENSITY DEXA Final R esult * ENDOSCOPY, COLON (12/27/2018 10:27 AM EDT) Narrative Transcriptions Andrea Malone MD - 12/27/2018 10:27 AM EDT Patient Name: Keikojesus Vera Attending MD:: ANDREA MALONE MD Procedure Date: 12/27/2018 10:27 AM Date of : 1955 Age: 63 Admit Type: Outpatient Gender: Female Room: [place] [address] Referring MD: Monika Carmona MD Exam Type: [...] monitored continuously. The Olympus adult variable colonoscope [id number] #4 was introduced through the anus and [...] 10:27 AM Procedure Code(s): --- Professional --- 44563, Colonoscopy, flexible; with removal of tumor(s), polyp(s), or other lesion(s) by snare technique --- Technical --- 00819, Colonoscopy, flexible; with removal of tumor(s), polyp(s), [...] perforation orabscess without bleeding CPT copyright 2018 [employer]. All rights reserved. The codes documented in this report are preliminary and upon tube dispatcher reviewmay be revised to meet current compliance requirements. [address] [place] [address] us Monika Carmona MD GI PROCEDURE ORDERABLE [...] There are scattered fibroglandular densities. POS - [id number] Narrative 03/07/2018 4:15 PM EST STUDY: Bilateral [...] There are scattered fibroglandular densities. POS - [id number] Monika Carmona MD IMG MG EXAMS Final Result * (ABNORMAL) Comprehensive metabolic panel (02/28/2017 3:58 PM EST) SODIUM 138 133 - 146 mmol/L [facility] POTASSIUM 3.8 3.3 - 5.1 mmol/L [facility] CHLORIDE 94(L) 96 - 108 mmol/L [facility] CO2 30 21 - 35 mmol/L [facility] BUN 22(H) 6 - 19 mg/dL [facility] CREATININE 0.60 0.5 - 1.5 mg/dL [facility] GLUCOSE 106(H) 70 - 99 mg/dL [facility] ALBUMIN 3.9 3.9 - 4.8 g/dL [facility] TOTAL PROTEIN 7.5 6.5 - 8.0 g/dL [facility] CALCIUM 8.8 8.4 - 10.3 mg/dL [facility] ALKALINE PHOSPHATASE 91 39 - 117 U/L [facility] TOTAL BILIRUBIN 0.3 0 - 1.2 mg/dL [facility] AST 31 0 - 37 U/L [facility] ALT 46(H) 0 - 40 U/L [facility] GLOBULIN 3.6 1 - 4.8 g/dL [facility] EGFR >60 >60 mL/min/1.7 3m2 [facility] Comment:Abnormal if <60. If patient is -[place], multiply the result by 1.21. ANION GAP 18 10 - 20 mmol/L [facility] Blood 02/28/2017 3:58 PM EST 02/28/2017 4:01 PM EST Sayra Barnett NP LAB BLOOD BKR ORDERABLES Final R esult [facility] [address] [place] [address] from Last 3 Months or Most Recently Relevant to Health Maintenance Insurance MEDICARE PART A & B [employer] MEDICARE PART A & [place] [id number] [employer] MEDIC[employer] PART A & [facility] [address] MEDICARE PART A & B [facility] MEDIC[facility] A & B [facility] MEDICARE PART A & B [facility] Care Teams Semiconductor Wafer Inspector Relationship Specialty Start Date End Date Monika Carmona MD [address] [place] [address] [place] [phone] PCP - General 01/17/17 Additional Source Comments The information contained in this document represents components of the legal health record. It is not the complete legal health record.[facility]
--- OUTSIDE RECORDS SUMMARY | 2025-02-20 02:03 | XMS_ITS | Encounter Summary ---
Author Organization [facility] Address [address] [place] [address] Phone Care Team Providers Care Pick Up Driver Name Role Phone Monika Carmona MD Primary Care Provider Encounter Details Date Type Department Care Team (Late st Contact Info) Description 12/14/2018 Ancillary Orders Virtual Department [address] [place] [address] Monika Carmona MD [address] [place] [address] [place] [phone] Breast screening Social History Tobacco Use [...] unspecified documented in this encounter Care Teams Pick Up Driver Relationship Specialty Start Date End Date Monika Carmona MD [address] [place] [address] [place] [phone] PCP - General 10/17/17 documented as of this encounter Additional Source Comments The information contained in this document represents components of the legal health record. It is not the complete legal health record.[facility]
--- OUTSIDE RECORDS SUMMARY | 2025-02-20 02:03 | XMS_ITS | Encounter Summary ---
Author Organization [facility] Address [address] [place] [address] Phone Care Team Providers Care Clinical Pathologist Name Role Phone Monika Carmona MD Primary Care Provider Encounter Details Date Type Department Care Team (Late st Contact Info) Description 12/18/2018 Ancillary Orders [facility], X-Ray - [facility] [address] [place] [address] Anthony Soni, DO [address] [place] [address] [email or web address] Social History Tobacco Use Types Packs/Day [...] pain documented in this encounter Care Teams Clinical Pathologist Relationship Specialty Start Date End Date Monika Carmona MD [address] [place] [address] [place] [phone] PCP - General 01/17/17 documented as of this encounter Additional Source Comments The information contained in this document represents components of the legal health record. It is not the complete legal health record.[facility]
== END 2025-02-19 13:55 | disposition home or self-care (01) ==
LOC: HO.MAMMO 13:54
PROVIDERS: PCP Internal Medicine; Visit Provider Internal Medicine
DX: Z12.31 Encounter for screening mammogram for malignant neoplasm of breast (principal)
CPT/HCPCS: 77063; 77067

== ENCOUNTER → 2025-02-19 14:15 | Outpatient (BNV) | payer OTHER, SELFPAY | PROVIDERS: PCP Internal Medicine; Visit Provider Internal Medicine | DX: Z12.31 Encounter for screening mammogram for malignant neoplasm of breast (principal) | CPT/HCPCS: 77063; 77067 ==